=== PATIENT | female | born 1990 ===

== ENCOUNTER 2020-10-20 18:18 | Emergency (ER) | payer OTHER, SELFPAY ==
[2020-10-20 18:44] VITALS: BP 153/86; PULSE 72; RESP 18; TEMP 36.8; O2SAT 99; BMI 31.0
--- NOTE | 2020-10-20 19:56 | CT_ITS ---
EXAMINATION: CT HEAD WITHOUT CONTRAST CLINICAL INFORMATION: Headache. Worse than prior. COMPARISON: CT head 04/30/2012 TECHNIQUE: Contiguous axial imaging was performed from the skull base to vertex without intravenous administration of contrast. Coronal and sagittal reformatted images are performed at CT scanner This CT examination was performed using dose optimization techniques as appropriate, variously including the following: *Automated exposure control *Adjustment of mA and/or kV according to patient size (this includes techniques or standardized protocols for targeted exams where dose is matched to indication/reason for exam; i.e. extremities or head) *Use of iterative reconstruction technique DLP: 694 mGy-cm FINDINGS: There is no evidence of acute intracranial hemorrhage or territorial infarction. No abnormal mass effect or midline shift is seen. Sanchez to white matter differentiation is well preserved. No extra-axial fluid collections are identified. The ventricles are normal in size. There is no abnormal attenuation within the brain parenchyma. The osseous structures and soft tissues are normal. The mastoid air cells and visualized portions of the paranasal sinuses are well aerated. CT/CT head/brain wo con IMPRESSION: No acute intracranial pathology.
[2020-10-20 20:18] LABS: Basophils Absolute Auto 0.1 X10*3/uL (0.0-0.2); Basophils Percent Auto 0.4 % (0-2); Eosinophils Absolute Auto 0.1 X10*3/uL (0.0-0.4); Eosinophils Percent Auto 0.6 % (0-4); Hematocrit 40.9 % (37-47); Hemoglobin 13.3 g/dl (12.0-16.0); Imm Gran Abs Auto 0.07 X10*3/uL (0.00-0.03); Imm Gran Pct Auto 0.5 % (0.0-0.4); Lymphocytes Absolute Auto 1.9 X10*3/uL (1.2-4.9); Lymphocytes Percent Auto 13.9 % (20-40); MANUAL DIFF FLAG NO; Mean Corpuscular HGB Conc 32.5 g/dl (31.0-35.0); Mean Corpuscular Hemoglobin 27.2 pg (27.0-33.0); Mean Corpuscular Volume 83.6 fL (80-98); Mean Platelet Volume 12.2 fL (9.4-12.3); Monocytes Absolute Auto 0.5 X10*3/uL (0.1-1.2); Monocytes Percent Auto 3.8 % (2-11); Neutrophils Absolute Auto 11.2 X10*3/uL (2.0-8.3); Neutrophils Percent Auto 80.8 % (45-73); Platelet Count 215 X10*3/uL (160-400); Red Blood Count 4.89 X10*6/uL (4.20-5.50); Red Cell Distribution Width 14.5 % (11.0-16.0); White Blood Count 13.9 X10*3/uL (4.8-10.8)
[2020-10-20] MEDS: diphenhydrAMINE HCL 50 MG/ML VIAL 25 MG IVPUSH (20:25)
[2020-10-20] MEDS: Metoclopramide HCl 10 MG/2 ML VIAL IVPUSH (20:25)
[2020-10-20] MEDS: dexAMETHasone sod phosphate 4 MG/ML VIAL 10 MG IVPUSH (20:26)
[2020-10-20] MEDS: Ketorolac Tromethamine 15 MG/ML VIAL 30 MG IV (20:26)
[2020-10-20 20:42] LABS: INTERNATIONAL NORM RATIO 1.1 (0.9-1.1); Prothrombin Time 12.7 SEC (10.8-13.0)
--- NOTE | 2020-10-20 20:47 | ED.HA ---
HPI - Headache General Chief Complaint: Headache Stated Complaint: headache Time Seen by Provider: 10/20/20 19:39 Source: patient Mode of arrival: ambulatory Limitations: no limitations History of Present Illness HPI Narrative: A 29-year-old female with a past medical history of migraine headaches presenting to the ED with complaints of a migraine headache for the past 3 days with associated nausea/vomiting which is similar compared to her prior migraine headaches. Although reports that she has tried ggvv-aja-zunvhuf medication which usually helps and has not taken the migraine is way. Denies any other symptoms complaints or concerns at this time. Related Data Previous Rx's Medication Instructions Recorded epafxuc-sznwqqmspbhif-yygujhwd 2 tab PO Q6H PRN #10 tab 10/20/20 [Excedrin Migraine] diphenhydramine HCl [Benadryl 25 mg PO TID PRN #10 tab 10/20/20 Allergy] metoclopramide HCl [Reglan] 10 mg PO Q6H PRN #10 tab 10/20/20 Allergies Allergy/AdvReac Type Severity Reaction Status Date / Time No Known Allergies Allergy Mild UNKNOWN Verified 10/20/20 19:13 Review of Systems Review of Systems: Constitutional : No changes in activity, No lethargy, No recent prior head injury, No agitation, No increased fussiness ENT/Mouth : No Ear Pain, No Nasal discharge/drainage Eyes: No Eye Pain, No Swelling, No Redness, No Foreign Body, No Vision Changes Cardiovascular : No Chest Pain, No SOB Respiratory : No Cough Gastrointestinal : + Nausea, + Vomiting, No abdominal Pain Genitourinary : No Dysuria, No Urinary Frequency, No Urinary Incontinence, No Urgency, No Flank Pain Musculoskeletal : No joint pain, No neck stiffness, No back pain/injury Skin : No lacerations Neuro : No unsteady gait, No Paresthesias, No Loss of Consciousness, No altered mental status, No dizziness, + Headache Denies past medical history of HIV, recent trauma, coagulopathy, recent spinal/ epidural procedure, new medication, URI symptoms, close contacts with similar symptoms, tick bite, or known CO2 exposure. Yes all other systems are reviewed and are negative [facility] Past Medical History Attestation statement: The following information was validated with the patient. Medical History Migraine Social History Social History Advance Directives: No Advance Directives Information Provided: No Physical Exam Vital Signs: Vital Signs: Last Vital Signs Temp 98.3 F 10/20/20 18:44 Pulse 72 10/20/20 18:44 Resp 18 10/20/20 18:44 BP 153/86 H 10/20/20 18:44 Pulse Ox 99 10/20/20 18:44 Body Mass Index 31.0 Vital signs have been reviewed as normal and appeared to be correct. Blood pressure normal. Heart rate normal. Respiration rate normal. Temperature normal. Oxygen saturation normal. Appearance: Alert. Oriented X3. No acute distress. Head: Normal external exam. Normocephalic. Atraumatic. Able to rotate head bilaterally. Eyes: PERRLA. EOMI. No nystagmus noted. Conjunctiva and sclera normal. Eyelids normal. Corneal reflex normal. ENT: EAC normal. TM's Normal. Hearing normal. Pharynx normal. Uvula midline. tongue midline. Moist mucous membranes. No trismus noted. No drooling noted. No muffled voice noted. Neck: Normal inspection. Neck supple. FROM. No adenopathy. Thyroid Normal. No meningeal signs. No neck mass noted. CVS: Normal heart rate and rhythm. Heart sound normal. No murmurs noted. Pulses normal throughout. Respiratory: No respiratory distress. Painless inspiration. Breath sounds normal. No wheezes/rales/rhonchi noted. Chest nontender. No accessory muscle usage noted or decreased air movement noted. Back: Full range of motion noted. Skin: Skin warm and dry. Normal skin color. Normal skin turgor. No rashes/lesions/lacerations noted. Extremities: Extremities exhibit normal range of motion. Extremities nontender. Able to shrug shoulders bilaterally and keep up against resistance. Neuro: Oriented X 3. No motor deficit. No sensory deficit. Reflexes normal. Moving all extremities. No focal motor deficits. Cranial nerves II-XI intact bilaterally. Facial strength normal. Normal cognition. Speech normal. Gait normal. Strength 5/5 throughout. No pronator drift. No tremor noted. No fasciculations noted. Muscle tone normal throughout. No asterixis noted. Mfujhc-oh-cpya test normal. Heel to zheng test normal. Tandem gait normal. Does not sway with eyes open. Romberg test negative. Rapid alternating movement upper extremity normal. Rapid alternating movement lower extremity normal. Hand drop from overhead-Mrs. face. No rigidity noted. NIHSS score 0. Course Course Course Narrative: - Patient afebrile, resting comfortably in no distress. Non-toxic appearing. Patient denies any recent trauma/injury to head. Neurological exam shows no deficits. BP WNL. Denies any changes in vision. Patient ambulates without difficulty. Given the history, and physical - most likely diagnosis: Migraine STEPHEN. Although due to patient reporting that this is longer than her usual headaches will obtain CT scan of brain to evaluate for any acute processes. Will treat pain, and nausea. Will d/c with migraine medicaiton and advised to follow - up with PCP. Patient demonstrated good understanding of signs and symptoms to return to ED for further testing should sx worsen. gradual onset STEPHEN with photo/phonophobia, nausea. Pt states classic of previous migraine HAs. SAH: unlikely given gradual onset and similar to previous episodes Intracranial bleed: unlikely given neg trauma, neg anticoagulation Meningitis: unlikely given pt afebrile, neg stiff neck, no immune compromise. Exam without signs of meningismus Temporal arteritis: Unlikely given Neg jaw claudication, no temporal tenderness or nodularity on exam. Cerebral venous thrombosis: unlikely given no h/o hypercoaguable state, no chronic head/neck infection. MDM - Headache Medical Records Attestation: I reviewed the patient's medical records. Lab Data Attestation: I reviewed the patient's lab results. Result diagrams: 10/20/20 20:10 10/20/20 20:10 Labs: Lab Results 10/20/20 10/20/20 10/20/20 Range/Units 20:10 20:10 20:10 WBC 13.9 H (4.8-10.8) X10*3/uL RBC 4.89 (4.20-5.50) X10*6/uL Hgb 13.3 (12.0-16.0) g/dl Hct 40.9 (37-47) % MCV 83.6 (80-98) fL MCH 27.2 (27.0-33.0) pg MCHC 32.5 (31.0-35.0) g/dl RDW 14.5 (11.0-16.0) % Plt Count 215 (160-400) X10*3/uL MPV 12.2 (9.4-12.3) fL Immature Gran % (Auto) 0.5 H (0.0-0.4) % Neut % (Auto) 80.8 H (45-73) % Lymph % (Auto) 13.9 L (20-40) % Finney % (Auto) 3.8 (2-11) % Eos % (Auto) 0.6 (0-4) % Baso % (Auto) 0.4 (0-2) % Lymph # (Auto) 1.9 (1.2-4.9) X10*3/uL Finney # (Auto) 0.5 (0.1-1.2) X10*3/uL Eos # (Auto) 0.1 (0.0-0.4) X10*3/uL Baso # (Auto) 0.1 (0.0-0.2) X10*3/uL Abs Immat Gran (auto) 0.07 H (0.00-0.03) X10*3/uL Absolute Neuts (auto) 11.2 H (2.0-8.3) X10*3/uL Absolute Nucleated RBC 0.000 (0.0-0.012) X10*3/uL Nucleated RBC % (auto) 0.0 (0.0-0.2) /100WBC ESR 9 (0-20) MM/HR PT 12.7 (10.8-13.0) SEC INR 1.1 (0.9-1.1) Sodium (135-145) mmol/L Potassium (3.3-5.1) mmol/l Chloride (96-108) mmol/L Carbon Dioxide (22-29) mmol/L Anion Gap (12-20) BUN (9-16) mg/dL Creatinine (0.5-1.4) mg/dL Estim Creat Clear Calc Estimated GFR Random Glucose (60-115) mg/dL Calcium (8.4-10.2) mg/dL Magnesium (1.6-2.6) mg/dL Total Bilirubin (0.0-1.0) mg/dL Direct Bilirubin (0.0-0.5) mg/dL AST (5-31) U/L ALT (0-31) U/L Alkaline Phosphatase (39-117) U/L C-Reactive Protein (< or = 0.50) mg/dL Total Protein (6.5-8.0) g/dL Albumin (3.5-5.0) g/dL Beta HCG, Quant mIU/mL 10/20/20 10/20/20 Range/Units 20:10 20:10 WBC (4.8-10.8) X10*3/uL RBC (4.20-5.50) X10*6/uL Hgb (12.0-16.0) g/dl Hct (37-47) % MCV (80-98) fL MCH (27.0-33.0) pg MCHC (31.0-35.0) g/dl RDW (11.0-16.0) % Plt Count (160-400) X10*3/uL MPV (9.4-12.3) fL Immature Gran % (Auto) (0.0-0.4) % Neut % (Auto) (45-73) % Lymph % (Auto) (20-40) % Finney % (Auto) (2-11) % Eos % (Auto) (0-4) % Baso % (Auto) (0-2) % Lymph # (Auto) (1.2-4.9) X10*3/uL Finney # (Auto) (0.1-1.2) X10*3/uL Eos # (Auto) (0.0-0.4) X10*3/uL Baso # (Auto) (0.0-0.2) X10*3/uL Abs Immat Gran (auto) (0.00-0.03) X10*3/uL Absolute Neuts (auto) (2.0-8.3) X10*3/uL Absolute Nucleated RBC (0.0-0.012) X10*3/uL Nucleated RBC % (auto) (0.0-0.2) /100WBC ESR (0-20) MM/HR PT (10.8-13.0) SEC INR (0.9-1.1) Sodium 142 (135-145) mmol/L Potassium 3.9 (3.3-5.1) mmol/l Chloride 106 (96-108) mmol/L Carbon Dioxide 27 (22-29) mmol/L Anion Gap 13 (12-20) BUN 8 L (9-16) mg/dL Creatinine 0.59 (0.5-1.4) mg/dL Estim Creat Clear Calc 160.4 Estimated GFR > 60 Random Glucose 91 (60-115) mg/dL Calcium 9.2 (8.4-10.2) mg/dL Magnesium 1.9 (1.6-2.6) mg/dL Total Bilirubin 0.4 (0.0-1.0) mg/dL Direct Bilirubin < 0.2 (0.0-0.5) mg/dL AST 14 (5-31) U/L ALT 29 (0-31) U/L Alkaline Phosphatase 88 (39-117) U/L C-Reactive Protein 0.62 H (< or = 0.50) mg/dL Total Protein 7.3 (6.5-8.0) g/dL Albumin 4.4 (3.5-5.0) g/dL Beta HCG, Quant < 2 mIU/mL Imaging Data CT scan - head: Attestation: I personally reviewed and interpreted this imaging study as follows: Radiologist's impression: IMPRESSION: No acute intracranial pathology. Discharge Plan Discharge Clinical Impression: Migraine Patient Disposition: Home, Self-Care Instructions: Migraine Headache (ED), Ocular Migraine (ED) Prescriptions: New diphenhydramine HCl [Benadryl Allergy] 25 mg tablet 25 mg PO TID PRN (Reason: nausea and vomiting) Qty: 10 RF: 0 Excedrin Migraine 250-250-65 mg tablet 2 tab PO Q6H PRN (Reason: pain) Qty: 10 RF: 0 metoclopramide HCl [Reglan] 10 mg tablet 10 mg PO Q6H PRN (Reason: nausea and vomiting) Qty: 10 RF: 0 Referrals: Missy Zuniga MD [Primary Care Provider] - 2 days Print Language: Wolof
[2020-10-20 20:48] LABS: Alanine Aminotransferase 29 U/L (0-31); Albumin Level 4.4 g/dL (3.5-5.0); Alkaline Phosphatase 88 U/L (39-117); Anion Gap 13 (12-20); Aspartate Amino Transferase 14 U/L (5-31); Bilirubin Direct < 0.2 mg/dL (0.0-0.5); Bilirubin Total 0.4 mg/dL (0.0-1.0); Blood Urea Nitrogen 8 mg/dL (9-16); C Reactive Protein 0.62 mg/dL (< or = 0.50); Calcium 9.2 mg/dL (8.4-10.2); Carbon Dioxide 27 mmol/L (22-29); Chloride 106 mmol/L (96-108); Creatinine Clr Calc Pharmacy 160.4; Estimated Glomerular Filt Rate > 60; Glucose Random 91 mg/dL (60-115); Magnesium 1.9 mg/dL (1.6-2.6); Potassium 3.9 mmol/l (3.3-5.1); Sodium 142 mmol/L (135-145); Total Protein 7.3 g/dL (6.5-8.0)
[2020-10-20 20:55] LABS: HCG Quantitative < 2 mIU/mL
[2020-10-20 21:20] LABS: Erythrocyte Sedimentation Rate 9 MM/HR (0-20)
--- NOTE | 2020-10-20 21:51 | PC.NURSE ---
pt reporting significant improvement with headache. sleeping upon entry into room. requesting discharge. awaiting ct results.
== END 2020-10-20 22:22 | disposition home or self-care (01) ==
PROVIDERS: Physician Assistant Medical; Emergency Provider Emergency Medicine Emergency Medical Services; PCP Internal Medicine
DX: G43.909 Migraine, unspecified, not intractable, without status migrainosus (principal); Z79.899 Other long term (current) drug therapy
CPT/HCPCS: 36415; 70450; 80048; 80076; 83735; 84702; 85025; 85610; 85652; 86140; 96361; 96374; 96375; 99284; J1100; J1200; J1885; J2765

== ENCOUNTER 2020-11-29 13:27 | Outpatient (REF) | payer OTHER, SELFPAY | END 2020-11-29 13:28 | disposition home or self-care (01) | LOC: HO.LAB 13:27 | PROVIDERS: Visit Provider Internal Medicine | DX: Z20.822 Contact with and (suspected) exposure to COVID-19 (principal) | CPT/HCPCS: 36415; C9803; U0003 ==

== ENCOUNTER 2021-04-20 13:58 | Emergency (ER) | payer OTHER, SELFPAY ==
[2021-04-20 14:25] VITALS: BP 142/89; PULSE 77; RESP 16; TEMP 36.9; O2SAT 100; BMI 30.8
--- NOTE | 2021-04-20 14:31 | ECG_ITS ---
Test Reason : CHEST PAIN Blood Pressure : / mmHG Vent. Rate : 074 BPM Atrial Rate : 074 BPM P-R Int : 156 ms QRS Dur : 088 ms QT Int : 402 ms P-R-T Axes : 062 039 038 degrees QTc Int : 446 ms Normal sinus rhythm Nonspecific T wave abnormality Abnormal ECG When compared with ECG of 23-JAN-2014 11:17, Premature ventricular complexes are no longer Present Referred By: Generic ED Physician Electronically Signed By:Kevin Helm
[2021-04-20 14:57] LABS: MANUAL DIFF FLAG NO
[2021-04-20 15:02] LABS: Basophils Absolute Auto 0.1 X10*3/uL (0.0-0.2); Basophils Percent Auto 0.5 % (0-2); Eosinophils Absolute Auto 0.2 X10*3/uL (0.0-0.4); Eosinophils Percent Auto 1.6 % (0-4); Hemoglobin 13.3 g/dl (12.0-16.0); Imm Gran Pct Auto 0.9 % (0.0-0.4); Lymphocytes Absolute Auto 2.8 X10*3/uL (1.2-4.9); Lymphocytes Percent Auto 23.7 % (20-40); Mean Corpuscular HGB Conc 32.4 g/dl (31.0-35.0); Mean Corpuscular Hemoglobin 27.9 pg (27.0-33.0); Mean Corpuscular Volume 86.1 fL (80-98); Mean Platelet Volume 12.1 fL (9.4-12.3); Monocytes Absolute Auto 0.6 X10*3/uL (0.1-1.2); Monocytes Percent Auto 5.3 % (2-11); Neutrophils Absolute Auto 7.9 X10*3/uL (2.0-8.3); Platelet Count 201 X10*3/uL (160-400); Red Blood Count 4.76 X10*6/uL (4.20-5.50); Red Cell Distribution Width 14.1 % (11.0-16.0); White Blood Count 11.6 X10*3/uL (4.8-10.8)
[2021-04-20 15:38] LABS: Anion Gap 13 (12-20); Blood Urea Nitrogen 9 mg/dL (9-16); Calcium 9.8 mg/dL (8.4-10.2); Carbon Dioxide 27 mmol/L (22-29); Chloride 104 mmol/L (96-108); Creatinine Clr Calc Pharmacy 131.8; Estimated Glomerular Filt Rate > 60; Glucose Random 82 mg/dL (60-115); Potassium 4.1 mmol/L (3.3-5.1); Sodium 140 mmol/L (135-145)
[2021-04-20 15:41] LABS: Troponin-I High Sensitivity < 3.5 ng/L (<3.5-17.0)
--- NOTE | 2021-04-20 17:02 | PC.NURSE ---
CALLED WR PT X 3 NO RESPONSE.
== END 2021-04-20 18:00 | disposition left against medical advice (07) ==
PROVIDERS: Emergency Provider Emergency Medicine
DX: R07.9 Chest pain, unspecified (principal)
CPT/HCPCS: 36415; 80048; 84484; 85025; 93005; 99282; 99283

== ENCOUNTER 2023-08-03 07:26 | Emergency (ER) | payer OTHER, SELFPAY ==
--- NOTE | ~2023-08-03 | US_ITS ---
EXAMINATION: US VENOUS ULTRASOUND WITH DOPPLER LOWER EXTREMITY, LEFT CLINICAL INFORMATION: COMPARISON: None available. TECHNIQUE: Ultrasound of the deep veins is performed from the hip to the calf with compression sonography and color and pulse Doppler assessment. Spectral analysis with color-flow imaging is performed. FINDINGS: There is normal venous compression and respiratory variation and augmented flow. The visualized common femoral vein, superficial femoral vein, profunda femoral vein, popliteal vein, and the trifurcation region shows no evidence of deep venous thrombosis. There is no significant popliteal fossa cyst. If the patient's symptoms persist, followup ultrasound in 5 days 7 days might be of value to exclude proximal propagation from a non-visualized calf vein. US/US venous duplex LE LT IMPRESSION: No DVT demonstrated in the left lower extremity.
[2023-08-03 07:39] VITALS: BP 122/71; PULSE 91; RESP 17; TEMP 36.6; O2SAT 99; BMI 32.1
[2023-08-03 08:46] LABS: MANUAL DIFF FLAG NO
[2023-08-03 08:47] LABS: Basophils Percent Auto 0.3 % (0-2); Eosinophils Percent Auto 0.1 % (0-4); Hematocrit 39.1 % (37.0-47.0); Hemoglobin 12.8 g/dl (12.0-16.0); Imm Gran Abs Auto 0.11 X10*3/uL (0.00-0.03); Imm Gran Pct Auto 1.2 % (0.0-0.4); Lymphocytes Absolute Auto 1.1 X10*3/uL (1.2-4.9); Lymphocytes Percent Auto 11.7 % (20-40); Mean Corpuscular HGB Conc 32.7 g/dl (31.0-35.0); Mean Corpuscular Hemoglobin 27.2 pg (27.0-33.0); Mean Corpuscular Volume 83.2 fL (80.0-98.0); Mean Platelet Volume 11.6 fL (9.4-12.3); Monocytes Absolute Auto 0.6 X10*3/uL (0.1-1.2); Monocytes Percent Auto 6.3 % (2-11); Neutrophils Absolute Auto 7.6 x10*3/uL (2.0-8.3); Neutrophils Percent Auto 80.4 % (45-73); Platelet Count 157 X10*3/uL (160-400); Red Cell Distribution Width 14.4 % (11.0-16.0); White Blood Count 9.4 X10*3/uL (4.8-10.8)
[2023-08-03 08:53] LABS: INTERNATIONAL NORM RATIO 1.1 (0.9-1.1); Prothrombin Time 13.6 SEC (11.1-13.3)
[2023-08-03 08:55] LABS: Partial Thromboplastin Time 25.5 SEC (26.0-36.4)
[2023-08-03 09:02] LABS: Alanine Aminotransferase 27 U/L (0-31); Albumin Level 4.3 g/dL (3.5-5.0); Alkaline Phosphatase 76 U/L (39-117); Anion Gap 12 (12-20); Aspartate Amino Transferase 22 U/L (5-31); Bilirubin Total 0.5 mg/dL (0.0-1.0); Blood Urea Nitrogen 8 mg/dL (9-16); Calcium 9.5 mg/dL (8.4-10.2); Carbon Dioxide 25 mmol/L (22-29); Chloride 104 mmol/L (96-108); Creatinine Clr Calc Pharmacy 131.9; Estimated Glomerular Filt Rate > 60; Glucose Random 104 mg/dL (60-115); Potassium 3.8 mmol/L (3.3-5.1); Sodium 137 mmol/L (135-145); Total Protein 7.7 g/dL (6.5-8.0)
--- NOTE | 2023-08-03 09:06 | ED.EXTPRO ---
HPI - Extremity Problem General Chief complaint: Extremity Problem Stated complaint: L leg pain/rash Time Seen by Provider: 08/03/23 09:05 Source: patient, RN notes reviewed and old records reviewed Mode of arrival: ambulatory History of Present Illness HPI Narrative: 32-year-old female with a past medical history of migraines presenting to the ED complaining of LLE pain x3 days, followed by erythematous rash noted last night. Patient states she marked the area before bed and extended up leg this morning. Also reports chills, myalgias, nausea and vomiting yesterday. Admits pain radiating up leg with associated foot paresthesias. denies injury/ fall or trauma, new exposures, known tick or insect bites, recent travel, fever, rash the other area MD Complaint: extremity pain and extremity swelling Related Data Previous Rx's Medication Instructions Recorded wammnfz-yovvdklkzeqts-qacwhbfd 250 2 tab PO Q6H PRN pain #10 tabs 10/20/20 mg-250 mg-65 mg tablet (Excedrin Migraine) diphenhydramine HCl 25 mg tablet 25 mg PO TID PRN nausea and 10/20/20 (Benadryl Allergy) vomiting #10 tabs metoclopramide HCl 10 mg tablet 10 mg PO Q6H PRN nausea and 10/20/20 (Reglan) vomiting #10 tabs cephalexin 500 mg capsule 500 mg PO QID 7 days #28 caps 08/03/23 doxycycline hyclate 100 mg tablet 100 mg PO BID 7 days #14 tabs 08/03/23 Allergies Allergy/AdvReac Type Severity Reaction Status Date / Time No Known Allergies Allergy Mild UNKNOWN Verified 04/20/21 14:30 Review of Systems Review of Systems: Constitutional: No Fever, + Chills ENT/Mouth: No Ear Pain, No Nasal Congestion, No Hoarseness, No sore throat, No Rhinorrhea, No Swallowing Difficulty Cardiovascular: No Chest Pain, No SOB Respiratory: No Cough, No Sputum, No Wheezing Gastrointestinal: + Nausea, + Vomiting, No Diarrhea, No Constipation, No Abdominal pain Musculoskeletal: + joint pain, No Myalgias, + Joint Swelling Skin: No Skin Lesions, + rash Neuro: No Weakness, No Numbness, No Paresthesias Yes all other systems are reviewed and are negative Constitutional: Constitutional: Reports as per [facility] Past Medical History Attestation statement: The following information was validated with the patient. Source: old records reviewed Medical History Migraine Social History Social History Alcohol intake: never Smoked in Last 30 Days: No Use of substances other than those prescribed or required for medical reasons: No Advance Directives: No Advance Directives Information Provided: No Patient : No Physical Exam Vital Signs: Vital Signs: Last Vital Signs Temp 98.9 F 08/03/23 10:42 Pulse 88 08/03/23 10:42 Resp 16 08/03/23 10:42 BP 133/80 08/03/23 10:42 Pulse Ox 98 08/03/23 10:42 O2 Del Method Room Air 08/03/23 10:42 BMI result Body Mass Index 32.1 Const: General: cooperative, healthy appearing and no acute distress Orientation/consciousness: patient oriented x3 Limitations: no limitations HEENT: Head: Yes normal to inspection and Yes atraumatic Ears: hearing grossly normal bilaterally General nose exam: Normal external nose present Face and sinus: Yes normal facial exam Eyes: General: appearance normal, both eyes and all related structures EOM: EOMs intact bilaterally Neck: Neck: Yes normal visual inspection and Yes no meningeal signs Resp: Effort & Inspection: normal respiratory effort and no respiratory distress Cardio: Rate: regular rate Peripheral pulses: Peripheral pulses 2+ throughout : General: Yes no CVA tenderness Back/Spine/Pelvis: Back: no CVA tenderness Skin: Wounds: no wounds Neuro: General: patient oriented x3, tone normal and no meningeal signs Cranial nerves: Yes CN's II-XII intact bilaterally Gait exam (Neuro): Normal gait present Extrem: Other: +LLE with erythematous raised rash starting at ankle extending to proximal calf. Not circumferential. Tender. Warm to touch. Blanchable. No fluctuance/ induration or streaking. No lymphangitis. Compartments soft. Neurovascular tight distally. ?small bite wound noted to distal calf General: Yes capillary refill normal Course Course Course Narrative: -1107-- labs reassuring US venous duplex LE LT IMPRESSION: No DVT demonstrated in the left lower extremity. Results discussed with patient including worrisome signs and symptoms and strict return precautions, and when to return to the emergency department. They verbalized understanding and feel safe for discharge at this time. Medications Administered Discontinued Medications Generic Name Dose Route Start Last Admin Trade Name Ritu PRN Reason Stop Dose Admin Cephalexin HCl 500 mg 08/03/23 09:11 08/03/23 09:49 Cephalexin 500 Mg Capsule PO 08/03/23 09:12 500 mg ONCE ONE Administration Diphenhydramine HCl 25 mg 08/03/23 09:11 08/03/23 09:49 Diphenhydramine Hcl 25 Mg Capsule PO 08/03/23 09:12 25 mg ONCE ONE Administration Ketorolac Tromethamine 30 mg 08/03/23 09:11 08/03/23 09:49 Ketorolac Tromethamine 30 Mg/Ml Vial IM 08/03/23 09:12 30 mg ONCE ONE Administration Medical Decision Making Medical Decision Making [facility] Narrative: 32-year-old female with a past medical history of migraines presenting to the ED complaining of LLE pain x3 days, followed by erythematous rash noted last night. On exam vital signs stable, NAD, nontoxic appearing her physical exam as noted above with raised erythematous rash to left lower extremity extending from ankle to proximal calf with tenderness. Compartments soft. No crepitus. Warm. No pitting edema. Neurovascular intact. Concern for cellulitis secondary to ?insect bite vs ?localized allergic reaction. low suspicion DVT, necrotizing fasciitis or coagulopathy plan: Labs ordered in triage, venous duplex ultrasound, p.o. Benadryl, p.o. Keflex, IM Toradol Please refer to course for remaining clinical decision making, interpretation of labs/imaging results, and discussions with consultants and/or family members. Differential Diagnosis Differential Diagnoses: The differential diagnosis associated with the presentation includes As above Admission/Observation Consideration of admission/observation: Escalation of care including admission/observation considered Lab Data [facility] Lab Attestation statement: I reviewed the patient's lab results. 08/03/23 08:41 08/03/23 08:41 Labs: Lab Results 08/03/23 Range/Units 08:41 WBC 9.4 (4.8-10.8) X10*3/uL RBC 4.70 (4.20-5.50) X10*6/uL Hgb 12.8 (12.0-16.0) g/dl Hct 39.1 (37.0-47.0) % MCV 83.2 (80.0-98.0) fL MCH 27.2 (27.0-33.0) pg MCHC 32.7 (31.0-35.0) g/dl RDW 14.4 (11.0-16.0) % Plt Count 157 L (160-400) X10*3/uL MPV 11.6 (9.4-12.3) fL Immature Gran % (Auto) 1.2 H (0.0-0.4) % Neut % (Auto) 80.4 H (45-73) % Lymph % (Auto) 11.7 L (20-40) % Crane % (Auto) 6.3 (2-11) % Eos % (Auto) 0.1 (0-4) % Baso % (Auto) 0.3 (0-2) % Lymph # (Auto) 1.1 L (1.2-4.9) X10*3/uL Crane # (Auto) 0.6 (0.1-1.2) X10*3/uL Eos # (Auto) 0.0 (0.0-0.4) X10*3/uL Baso # (Auto) 0.0 (0.0-0.2) X10*3/uL Abs Immat Gran (auto) 0.11 H (0.00-0.03) X10*3/uL Absolute Neuts (auto) 7.6 (2.0-8.3) x10*3/uL Absolute Nucleated RBC 0.000 (0.0-0.012) X10*3/uL Nucleated RBC % (auto) 0.0 (0.0-0.2) /100WBC PT 13.6 H (11.1-13.3) SEC INR 1.1 (0.9-1.1) APTT 25.5 L (26.0-36.4) SEC Sodium 137 (135-145) mmol/L Potassium 3.8 (3.3-5.1) mmol/L Chloride 104 (96-108) mmol/L Carbon Dioxide 25 (22-29) mmol/L Anion Gap 12 (12-20) BUN 8 L (9-16) mg/dL Creatinine 0.71 (0.5-1.4) mg/dL Estim Creat Clear Calc 131.9 Estimated GFR > 60 Random Glucose 104 (60-115) mg/dL Calcium 9.5 (8.4-10.2) mg/dL Total Bilirubin 0.5 (0.0-1.0) mg/dL AST 22 (5-31) U/L ALT 27 (0-31) U/L Alkaline Phosphatase 76 (39-117) U/L Total Protein 7.7 (6.5-8.0) g/dL Albumin 4.3 (3.5-5.0) g/dL Radiology Impression Discussion of test interpretation with radiology: I have reviewed the radiologist's reading. External Record Review External record reviewed: Inpatient record, Office record, Outpatient record, Prior outpatient labs, Prior outpatient radiology, Primary care record and Outside ED record Tests considered The following testing was considered but not selected: As above Prescription Management I considered prescription management with: Pain Medication Discharge Plan Discharge Clinical Impression: Cellulitis Patient Disposition: Home, Self-Care Instructions: Cellulitis (DC) Additional Instructions: your blood work and ultrasound were reassuring Take Keflex and doxycycline as prescribed If redness or swelling is passing lines created in the emergency department please return to the ED Please follow-up in 2-3 days for re-evaluation if you develops fever, persistent or worsening swelling/discoloration return to the ED Prescriptions: New cephalexin 500 mg capsule 500 mg PO QID 7 Days Qty: 28 0RF doxycycline hyclate 100 mg tablet 100 mg PO BID 7 Days Qty: 14 0RF No Action diphenhydramine HCl [Benadryl Allergy] 25 mg tablet 25 mg PO TID PRN (Reason: nausea and vomiting) Qty: 10 0RF Excedrin Migraine 250-250-65 mg tablet 2 tab PO Q6H PRN (Reason: pain) Qty: 10 0RF metoclopramide HCl [Reglan] 10 mg tablet 10 mg PO Q6H PRN (Reason: nausea and vomiting) Qty: 10 0RF Referrals: Liliana Flores DO [Primary Care Provider] - 2 days ( for re-evaluation) Interventions: ED Discharge Assessment Last Done: 08/03/23 11:25 Discharge Date/Time: 08/03/23 11:25
[2023-08-03] MEDS: diphenhydrAMINE HCL 25 MG CAPSULE PO (09:49)
[2023-08-03] MEDS: Ketorolac Tromethamine 30 MG/ML VIAL IM (09:49)
[2023-08-03] MEDS: cephALEXin 500 MG CAPSULE PO (09:49)
[2023-08-03 10:42] VITALS: BP 133/80; PULSE 88; RESP 16; TEMP 37.2; O2SAT 98
== END 2023-08-03 11:25 | disposition home or self-care (01) ==
PROVIDERS: Emergency Provider Emergency Medicine Emergency Medical Services; PCP Family Medicine
DX: L03.116 Cellulitis of left lower limb (principal); M79.662 Pain in left lower leg; Z79.82 Long term (current) use of aspirin; Z79.899 Other long term (current) drug therapy
CPT/HCPCS: 36415; 80053; 85025; 85610; 85730; 93971; 96372; 99284; J1885

== ENCOUNTER 2023-08-24 16:46 | Emergency (ER) | payer OTHER, SELFPAY ==
--- NOTE | 2023-08-24 17:07 | ED.SKABFB ---
HPI - Skin/Abscess/Foreign Bdy General Chief complaint: General Medical Stated complaint: numbness in hand, chills, L leg rash Time Seen by Provider: 08/24/23 17:47 Source: patient Mode of arrival: ambulatory History of Present Illness HPI narrative: 32-year-old female who presents with recurrence of left lower extremity redness, pain, and swelling that came on starting at 05:00 this morning. She states she was seen 3 weeks ago for a similar presentation and did follow-up with her primary care doctor today who obtained lab work but the pain was extensive and patient states she began to feel unwell with associated nausea and headache. Related Data Previous Rx's Medication Instructions Recorded [id number] 250 2 tab PO Q6H PRN pain #10 tabs 10/20/20 mg-250 mg-65 mg tablet (Excedrin Migraine) diphenhydramine HCl 25 mg tablet 25 mg PO TID PRN nausea and 10/20/20 (Benadryl Allergy) vomiting #10 tabs metoclopramide HCl 10 mg tablet 10 mg PO Q6H PRN nausea and 10/20/20 (Reglan) vomiting #10 tabs cephalexin 500 mg capsule 500 mg PO QID 7 days #28 caps 08/03/23 doxycycline hyclate 100 mg tablet 100 mg PO BID 7 days #14 tabs 08/03/23 prednisone 20 mg tablet 20 mg PO DAILY #4 tabs 08/24/23 Allergies Allergy/AdvReac Type Severity Reaction Status Date / Time No Known Allergies Allergy Mild UNKNOWN Verified 04/20/21 14:30 Review of Systems Review of Systems: Pertinent positives and negatives as stated in HPI [facility] Past Medical History Source: nursing notes reviewed Medical History Migraine Social History Social History Alcohol intake: never Smoked in Last 30 Days: No Use of substances other than those prescribed or required for medical reasons: No Advance Directives: No Physical Exam Vital Signs: Vital Signs: Last Vital Signs Temp 98.7 F 08/24/23 19:02 Pulse 108 H 08/24/23 19:02 Resp 16 08/24/23 17:08 BP 144/100 H 08/24/23 19:02 Pulse Ox 98 08/24/23 19:02 O2 Del Method Room Air 08/24/23 19:02 BMI result Body Mass Index 42.3 VITAL SIGNS: Reviewed. GENERAL: Well developed, well nourished, in no acute distress. HEAD: Normocephalic/atraumatic EYES: PERRLA, EOMI EARS: Ext canals without abnormality NOSE: Nares patent bilateral OROPHARYNX: no oral lesions noted, posterior pharynx clear NECK: Supple, no adenopathy LUNGS: Normal breath sounds. No adventitious sounds or accessory muscle use. SpO2<98> CARDIOVASCULAR: Regular rate and rhythm without noted murmurs ABDOMEN: Soft, non-tender, non-distended with bowel sounds. MUSCULOSKELETAL: No tenderness, deformities, or effusions noted on gross inspection. EXTREMITIES: No cyanosis, clubbing or edema. SKIN: Inspection of the skin reveals no rashes NEUROLOGIC: Alert and oriented x 4. Strength and sensation to light touch were grossly intact x 4. Course Course Course Narrative: This is an RME: Additional HPI, ROS, PE not included below will be deferred to primary provider. Patient is a 32-year-old female who presents emergency department for evaluation of nausea, chills, body aches, today developed return of LLE rash, saw her PCP today at 14:00 they prescribed prednisone and had labs drawn. However once she left the office she was feeling worse so she decided to come to the ED. Reports a hx of similar symptoms 3 weeks ago, and was told likely cellulitis vs. allergic reaction, symptoms lasted 1 week and completed course of antibiotics. She is noted to be hypertensive, tachycardic with pulse 110-120, reports intermittent chest pain and difficulty breathing, denies feeling anxious or having history of anxiety. Plan: labs, blood cultures, EKG Medications Administered Discontinued Medications Generic Name Dose Route Start Last Admin Trade Name Freq PRN Reason Stop Dose Admin Acetaminophen 975 mg 08/24/23 20:10 08/24/23 20:16 Acetaminophen 325 Mg Tablet PO 08/24/23 20:11 975 mg ONCE ONE Administration Ibuprofen 400 mg 08/24/23 20:10 08/24/23 20:16 Ibuprofen 400 Mg Tablet PO 08/24/23 20:11 400 mg ONCE ONE Administration Medical Decision Making Medical Decision Making MDM Narrative: 193: 32-year-old female with history and clinical presentation, DDX: Anxiety, skin reaction, less likely cellulitis, less likely DVT but will proceed with venous duplex, autoimmune or vasculitis condition. I reviewed all investigations and hematologic indices demonstrate a stress leukocytosis as patient is afebrile and suspect a component anxiety associated with the episode. There is no anemia or thrombocytopenia. Ultrasound negative for DVT. Chemistry indices are grossly within normal limits as there is no SP, electrolyte and liver enzymes are within normal limits, high sensitivity troponin is undetectable (this was obtained because patient had endorsed some chest discomfort). ESR is within normal limits but CRP is noted to be elevated at 2.27. Rheumatoid factor is undetectable at 13, patient received combination analgesics with good pain control, Joesph wrap was placed for compression and relief of pressure within the leg and she will be discharged on a short course of steroids as I feel that this is an inflammatory response and not an infectious etiology due to the recurrence. COVID-19 is negative. Patient was informed of all results and findings. Differential Diagnosis Differential Diagnoses: The differential diagnosis associated with the presentation includes Please see the discussion above Admission/Observation Consideration of admission/observation: Escalation of care including admission/observation considered Please see the discussion above Lab Data MDM Lab Attestation statement: I reviewed the patient's lab results. Please see the discussion above 08/24/23 18:04 08/24/23 18:04 Labs: Lab Results 08/24/23 08/24/23 08/24/23 Range/Units 18:04 19:08 20:09 WBC 13.3 H (4.8-10.8) X10*3/uL RBC 4.75 (4.20-5.50) X10*6/uL Hgb 12.9 (12.0-16.0) g/dl Hct 39.3 (37.0-47.0) % MCV 82.7 (80.0-98.0) fL MCH 27.2 (27.0-33.0) pg MCHC 32.8 (31.0-35.0) g/dl RDW 14.2 (11.0-16.0) % Plt Count 189 (160-400) X10*3/uL MPV 11.9 (9.4-12.3) fL Immature Gran % (Auto) 0.5 H (0.0-0.4) % Neut % (Auto) 84.8 H (45-73) % Lymph % (Auto) 8.7 L (20-40) % [place] % (Auto) 4.7 (2-11) % Eos % (Auto) 0.8 (0-4) % Baso % (Auto) 0.5 (0-2) % Lymph # (Auto) 1.2 (1.2-4.9) X10*3/uL [place] # (Auto) 0.6 (0.1-1.2) X10*3/uL Eos # (Auto) 0.1 (0.0-0.4) X10*3/uL Baso # (Auto) 0.1 (0.0-0.2) X10*3/uL Abs Immat Gran (auto) 0.06 H (0.00-0.03) X10*3/uL Absolute Neuts (auto) 11.3 H (2.0-8.3) x10*3/uL Absolute Nucleated RBC 0.000 (0.0-0.012) X10*3/uL Nucleated RBC % (auto) 0.0 (0.0-0.2) /100WBC ESR 18 (0-20) MM/HR PT 12.3 (11.1-13.3) SEC INR 1.0 (0.9-1.1) Sodium 139 (135-145) mmol/L Potassium 3.5 (3.3-5.1) mmol/L Chloride 104 (96-108) mmol/L Carbon Dioxide 23 (22-29) mmol/L Anion Gap 16 (12-20) BUN 5 L (9-16) mg/dL Creatinine 0.62 (0.5-1.4) mg/dL Estim Creat Clear Calc 175.1 Estimated GFR > 60 Random Glucose 104 (60-115) mg/dL Lactic Acid 1.3 (0.5-2.0) mmol/L Calcium 9.6 (8.4-10.2) mg/dL Magnesium 1.7 (1.6-2.6) mg/dL Total Bilirubin 0.7 (0.0-1.0) mg/dL AST 14 (5-31) U/L ALT 18 (0-31) U/L Alkaline Phosphatase 76 (39-117) U/L Troponin I High Sens < 2.7 (<3.5-17.0) ng/L C-Reactive Protein 2.27 H (< or = 0.50) mg/dL Total Protein 7.8 (6.5-8.0) g/dL Albumin 4.5 (3.5-5.0) g/dL Hold Red Top See Note Urine Color Yellow Urine Appearance Clear Urine pH 7.5 (5.0-9.0) Ur Specific [place] 1.020 (1.005-1.025) Urine Protein Negative (Neg-Trace) mg/dL Urine Glucose (UA) Negative (Negative) mg/dL Urine Ketones Negative (Negative) mg/dL Urine Blood Negative (Negative) Urine Nitrite Negative (Negative) Ur Leukocyte Esterase Moderate (2+) H (Negative) Urine RBC 0-2 (0-2) /HPF Urine WBC 21-50 H (0-5) /HPF Ur Squamous Epith Cells 3-5 (0-2) /HPF Urine Bacteria None Seen (None Seen) Hyaline Casts 0-2 (0-2) /LPF Rheumatoid Factor < 13.0 (<15.0) IU/mL COVID-19 ([facility]) Negative (Negative) COVID-19 Clin Com See Note Independent Interpretation I performed an independent interpretation of an: EKG Interpretation: Sinus tachycardia, HR-112, no STEMI, ND/QRS/QTC is within normal limits. Radiology Impression Discussion of test interpretation with radiology: I have reviewed the radiologist's reading. 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 Please complete the short course of steroids that you have been provided. 2. Please follow-up with your primary care provider on Sunday morning. Return to the ER for any worsening symptoms. Prescriptions: New prednisone 20 mg tablet 20 mg PO DAILY Qty: 4 0RF No Action diphenhydramine HCl [Benadryl Allergy] 25 mg tablet 25 mg PO TID PRN (Reason: nausea and vomiting) Qty: 10 0RF Excedrin Migraine 250-250-65 mg tablet 2 tab PO Q6H PRN (Reason: pain) Qty: 10 0RF metoclopramide HCl [Reglan] 10 mg tablet 10 mg PO Q6H PRN (Reason: nausea and vomiting) Qty: 10 0RF cephalexin 500 mg capsule 500 mg PO QID 7 Days Qty: 28 0RF doxycycline hyclate 100 mg tablet 100 mg PO BID 7 Days Qty: 14 0RF
[2023-08-24 17:08] VITALS: BP 164/104; PULSE 118; RESP 16; TEMP 37.3; O2SAT 100; BMI 42.3
[2023-08-24 19:02] VITALS: BP 144/100; PULSE 108; TEMP 37.1; O2SAT 98
--- NOTE | 2023-08-24 20:55 | PC.NURSE ---
this rn assumed care. pt a&ox3. respirations even and unlabored. pt reports lower left leg pain for one day. pt reports being treated for cellulitis 2 weeks ago on the same leg. pt leg red, warm and tender to touch. redness begins at the lower calf and extends up the upper calf. pt reports pain when standing on the left leg. pt denies chest pain. nausea, vomiting and diarrhea. pt denies fever at this time.
--- NOTE | 2023-08-24 21:40 | PC.NURSE ---
provider at bedside discussing d/c instructions
[2023-08-24 21:46] VITALS: BP 144/87; PULSE 104; RESP 12
== END 2023-08-24 21:50 | disposition home or self-care (01) ==
PROVIDERS: Emergency Provider Student in an Organized Health Care Education/Training Program
DX: R21 Rash and other nonspecific skin eruption (principal); D89.89 Other specified disorders involving the immune mechanism, not elsewhere classified; M79.662 Pain in left lower leg; R00.0 Tachycardia, unspecified; Z11.52 Encounter for screening for COVID-19; Z79.82 Long term (current) use of aspirin; Z79.899 Other long term (current) drug therapy
CPT/HCPCS: 80053; 81001; 83605; 83735; 84484; 85025; 85610; 85652; 86140; 86431; 87040; 87086; 87635; 93005; 93971; 99284

== ENCOUNTER 2023-09-10 09:03 | Emergency (ER) | payer OTHER, SELFPAY ==
[2023-09-10 09:25] VITALS: BP 163/100; PULSE 84; RESP 16; TEMP 36.2; O2SAT 99; BMI 32.4
--- NOTE | 2023-09-10 10:20 | ED_ITS ---
HPI - Extremity Problem General Chief complaint: Extremity Problem Stated complaint: l leg redness painful Time Seen by Provider: 09/10/23 10:17 Source: patient and old records reviewed Mode of arrival: ambulatory Limitations: no limitations History of Present Illness HPI Narrative: 32 yo female presents to the ER for evaluation of recurrent redness, pain and swelling of her left lower leg for the last 3 days. She states this is the 3rd episode of similar symptoms. In July and earlier this month she also had similar symptoms and was seen here. She has had negative DVT studies x2, was treated with antibiotics as well as steroids. She reports no improvement with steroids but brief resolution with antibiotics. She denies fever or chills but reports feeling unwell when the swelling and redness comes. She is nauseated and doesn't feel good. She denies any injury to the leg. No known insect or tick bites. MD Complaint: extremity pain and extremity swelling Onset (ago): day(s) Pain Consistency: constant Location: left and lower extremity Severity scale (1-10): 6 Quality: aching Radiation: proximal and distal Relieving factors: elevation Exacerbating factors: weight bearing, walking and palpation Associated symptoms: myalgias and other (nausea) Related Data Previous Rx's Medication Instructions Recorded [id number] 250 2 tab PO Q6H PRN pain #10 tabs 10/20/20 mg-250 mg-65 mg tablet (Excedrin Migraine) diphenhydramine HCl 25 mg tablet 25 mg PO TID PRN nausea and 10/20/20 (Benadryl Allergy) vomiting #10 tabs metoclopramide HCl 10 mg tablet 10 mg PO Q6H PRN nausea and 10/20/20 (Reglan) vomiting #10 tabs cephalexin 500 mg capsule 500 mg PO QID 7 days #28 caps 08/03/23 doxycycline hyclate 100 mg tablet 100 mg PO BID 7 days #14 tabs 08/03/23 prednisone 20 mg tablet 20 mg PO DAILY #4 tabs 08/24/23 cephalexin 500 mg capsule 500 mg PO Q6H 14 days #56 caps 09/10/23 doxycycline hyclate 100 mg tablet 100 mg PO BID #28 tabs 09/10/23 ibuprofen 600 mg tablet 600 mg PO Q8H PRN pain #14 tabs 09/10/23 ondansetron 4 mg disintegrating 4 mg PO Q8H PRN nausea and 09/10/23 tablet vomiting #7 tabs Allergies Allergy/AdvReac Type Severity Reaction Status Date / Time No Known Allergies Allergy Mild UNKNOWN Verified 04/20/21 14:30 Review of Systems 2 Review of Systems: Yes all other systems are reviewed and are negative [facility] Past Medical History Medical History Migraine Social History Social History Alcohol intake: never Advance Directives: No Physical Exam 2 Vital Signs: Vital Signs: Last Vital Signs Temp 98.4 F 09/10/23 12:55 Pulse 73 09/10/23 12:55 Resp 20 09/10/23 12:55 BP 131/79 09/10/23 12:55 Pulse Ox 99 09/10/23 09:25 O2 Del Method Room Air 09/10/23 09:25 BMI result Body Mass Index 32.4 Appearance: Alert. Oriented X3. No acute distress. HEENT: normal inspection CVS: Normal heart rate and rhythm. Pulses normal. Respiratory: No respiratory distress. Skin: Skin warm and dry. Normal skin color. Normal skin turgor. No rashes. Extremities: Normal inspection of the RLE. LLE with 2+ pitting edema of the lower leg with erythema, tenderness, hyperpigmented rash to the calf and red streaking on the proximal calf, see photo Neuro: Oriented X 3. No motor deficit. No sensory deficit. Medications Administered Discontinued Medications Generic Name Dose Route Start Last Admin Trade Name Freq PRN Reason Stop Dose Admin Cephalexin HCl 500 mg 09/10/23 10:41 09/10/23 11:09 Cephalexin 500 Mg Capsule PO 09/10/23 10:42 500 mg ONCE ONE Administration Doxycycline Monohydrate 100 mg 09/10/23 10:41 09/10/23 11:09 Doxycycline Monohydrate 100 Mg Capsule PO 09/10/23 10:42 100 mg ONCE ONE Administration Oxycodone HCl 5 mg 09/10/23 10:41 09/10/23 11:09 Oxycodone Hcl Immed Release 5 Mg Tablet PO 09/10/23 10:42 5 mg ONCE ONE Administration Medical Decision Making Medical Decision Making MDM Narrative: 32 yo otherwise healthy female presenting with recurrent LLE erythema, swelling and pain. Chart reviewed - negative doppler x2. treated with prednisone and abx. had autoimmune workup as an outpatient that she states was unremarkable labs today without leukocytosis. no fever or tachycardia to suggest sepsis. inflammatory markers elevated, nonspecific patient seen and evaluated by Dr. Worthington - taylor w/ longer treatment w/ PO abx. Differential Diagnosis Differential Diagnoses: The differential diagnosis associated with the presentation includes cellulitis, MRSA, eryspilas, rheumatologic disorder, vasculitis, tick bourne illness, less likely DVT or superficial thrombophlebitis Admission/Observation Consideration of admission/observation: Escalation of care including admission/observation considered recurrent cellulitis considered admit but no signs of sepsis Lab Data MDM Lab Attestation statement: I reviewed the patient's lab results. mild anemia which is new but no leukocytosis, mild elevations CRP and ESR. LFTs are normal 09/10/23 11:14 09/10/23 11:14 Labs: Lab Results 09/10/23 Range/Units 11:14 WBC 8.8 (4.8-10.8) X10*3/uL RBC 4.27 (4.20-5.50) X10*6/uL Hgb 11.6 L (12.0-16.0) g/dl Hct 36.6 L (37.0-47.0) % MCV 85.7 (80.0-98.0) fL MCH 27.2 (27.0-33.0) pg MCHC 31.7 (31.0-35.0) g/dl RDW 14.6 (11.0-16.0) % Plt Count 170 (160-400) X10*3/uL MPV 11.5 (9.4-12.3) fL Immature Gran % (Auto) 0.6 H (0.0-0.4) % Neut % (Auto) 63.0 (45-73) % Lymph % (Auto) 27.8 (20-40) % [place] % (Auto) 6.9 (2-11) % Eos % (Auto) 1.1 (0-4) % Baso % (Auto) 0.6 (0-2) % Lymph # (Auto) 2.5 (1.2-4.9) X10*3/uL [place] # (Auto) 0.6 (0.1-1.2) X10*3/uL Eos # (Auto) 0.1 (0.0-0.4) X10*3/uL Baso # (Auto) 0.1 (0.0-0.2) X10*3/uL Abs Immat Gran (auto) 0.05 H (0.00-0.03) X10*3/uL Absolute Neuts (auto) 5.6 (2.0-8.3) x10*3/uL Absolute Nucleated RBC 0.000 (0.0-0.012) X10*3/uL Nucleated RBC % (auto) 0.0 (0.0-0.2) /100WBC ESR 25 H (0-20) MM/HR Sodium 141 (135-145) mmol/L Potassium 3.6 (3.3-5.1) mmol/L Chloride 108 (96-108) mmol/L Carbon Dioxide 27 (22-29) mmol/L Anion Gap 10 L (12-20) BUN 6 L (9-16) mg/dL Creatinine 0.62 (0.5-1.4) mg/dL Estim Creat Clear Calc 151.8 Estimated GFR > 60 Random Glucose 85 (60-115) mg/dL Calcium 9.3 (8.4-10.2) mg/dL Magnesium 2.0 (1.6-2.6) mg/dL Total Bilirubin 0.3 (0.0-1.0) mg/dL Direct Bilirubin 0.1 (0.0-0.5) mg/dL AST 10 (5-31) U/L ALT 19 (0-31) U/L Alkaline Phosphatase 66 (39-117) U/L C-Reactive Protein 3.45 H (< or = 0.50) mg/dL Total Protein 7.2 (6.5-8.0) g/dL Albumin 4.1 (3.5-5.0) g/dL External Record Review External record reviewed: Office record, Outpatient record, Prior outpatient labs and Prior outpatient radiology Tests considered The following testing was considered but not selected: considered repeat LE doppler Prescription Management I considered prescription management with: Pain Medication and Antibiotic Critical Care Time Critical Care Time Critical Care Time: No Discharge Plan Discharge Clinical Impression: Cellulitis Qualifiers: Site of cellulitis: extremity Site of cellulitis of extremity: lower extremity Laterality: left Qualified Code(s): L03.116 - Cellulitis of left lower limb Patient Disposition: Home, Self-Care Instructions: Cellulitis (DC) Additional Instructions: Take the prescribed antibiotics as directed, complete the entire course and do not miss any doses. You are given a 2 week course this time Elevate your leg when possible Take the prescribed ibuprofen as needed for pain Follow up with your doctor Also recommend following up with Infectious Disease for further evaluation and treatment. If you develop new or worsening symptoms call 911 or come back to the ER for further evaluation. Prescriptions: New doxycycline hyclate 100 mg tablet 100 mg PO BID Qty: 28 0RF cephalexin 500 mg capsule 500 mg PO Q6H 14 Days Qty: 56 0RF ibuprofen 600 mg tablet 600 mg PO Q8H PRN (Reason: pain) Qty: 14 0RF ondansetron 4 mg tablet,disintegrating 4 mg PO Q8H PRN (Reason: nausea and vomiting) Qty: 7 0RF No Action diphenhydramine HCl [Benadryl Allergy] 25 mg tablet 25 mg PO TID PRN (Reason: nausea and vomiting) Qty: 10 0RF Excedrin Migraine 250-250-65 mg tablet 2 tab PO Q6H PRN (Reason: pain) Qty: 10 0RF metoclopramide HCl [Reglan] 10 mg tablet 10 mg PO Q6H PRN (Reason: nausea and vomiting) Qty: 10 0RF prednisone 20 mg tablet 20 mg PO DAILY Qty: 4 0RF cephalexin 500 mg capsule 500 mg PO QID 7 Days Qty: 28 0RF doxycycline hyclate 100 mg tablet 100 mg PO BID 7 Days Qty: 14 0RF Referrals: TONO STODDARD MD [Physician] - (recurrent LLE cellulitis) Stand Alone Forms: Work/School Release Interventions: ED Discharge Assessment Last Done: 09/10/23 12:55 Discharge Date/Time: 09/10/23 12:56
[2023-09-10] MEDS: cephALEXin 500 MG CAPSULE PO (11:09)
[2023-09-10] MEDS: Doxycycline Monohydrate 100 MG CAPSULE PO (11:09)
[2023-09-10] MEDS: oxyCODONE HCl Immed Release 5 MG TABLET PO (11:09)
[2023-09-10 11:17] LABS: MANUAL DIFF FLAG NO
[2023-09-10 11:19] LABS: Basophils Absolute Auto 0.1 X10*3/uL (0.0-0.2); Basophils Percent Auto 0.6 % (0-2); Eosinophils Absolute Auto 0.1 X10*3/uL (0.0-0.4); Eosinophils Percent Auto 1.1 % (0-4); Hematocrit 36.6 % (37.0-47.0); Hemoglobin 11.6 g/dl (12.0-16.0); Imm Gran Abs Auto 0.05 X10*3/uL (0.00-0.03); Imm Gran Pct Auto 0.6 % (0.0-0.4); Lymphocytes Absolute Auto 2.5 X10*3/uL (1.2-4.9); Lymphocytes Percent Auto 27.8 % (20-40); Mean Corpuscular HGB Conc 31.7 g/dl (31.0-35.0); Mean Corpuscular Hemoglobin 27.2 pg (27.0-33.0); Mean Corpuscular Volume 85.7 fL (80.0-98.0); Mean Platelet Volume 11.5 fL (9.4-12.3); Monocytes Absolute Auto 0.6 X10*3/uL (0.1-1.2); Monocytes Percent Auto 6.9 % (2-11); Neutrophils Absolute Auto 5.6 x10*3/uL (2.0-8.3); Platelet Count 170 X10*3/uL (160-400); Red Blood Count 4.27 X10*6/uL (4.20-5.50); Red Cell Distribution Width 14.6 % (11.0-16.0); White Blood Count 8.8 X10*3/uL (4.8-10.8)
[2023-09-10 11:35] LABS: Alanine Aminotransferase 19 U/L (0-31); Albumin Level 4.1 g/dL (3.5-5.0); Alkaline Phosphatase 66 U/L (39-117); Anion Gap 10 (12-20); Aspartate Amino Transferase 10 U/L (5-31); Bilirubin Direct 0.1 mg/dL (0.0-0.5); Bilirubin Total 0.3 mg/dL (0.0-1.0); Blood Urea Nitrogen 6 mg/dL (9-16); C Reactive Protein 3.45 mg/dL (< or = 0.50); Calcium 9.3 mg/dL (8.4-10.2); Carbon Dioxide 27 mmol/L (22-29); Chloride 108 mmol/L (96-108); Creatinine Clr Calc Pharmacy 151.8; Estimated Glomerular Filt Rate > 60; Glucose Random 85 mg/dL (60-115); Potassium 3.6 mmol/L (3.3-5.1); Sodium 141 mmol/L (135-145); Total Protein 7.2 g/dL (6.5-8.0)
[2023-09-10 11:57] LABS: Erythrocyte Sedimentation Rate 25 MM/HR (0-20)
[2023-09-10 12:55] VITALS: BP 131/79; PULSE 73; RESP 20; TEMP 36.9
[2023-09-11 21:14] LABS: Lyme Abs Screen <0.90 index
[2023-09-12 18:03] LABS: A. Phagocytphilium DNA,RT-PCR NOT DETECTED (NOT DETECTED); Babesia Microti DNA, RT-PCR NOT DETECTED (NOT DETECTED); Borrelia Miyamotoi,DNA RT-PCR NOT DETECTED (NOT DETECTED); E.Chaffeensis DNA RT-PCR NOT DETECTED (NOT DETECTED); Lyme(Borrelia ssp)DNA RT-PCR NOT DETECTED (NOT DETECTED)
== END 2023-09-10 12:56 | disposition home or self-care (01) ==
PROVIDERS: Physician Assistant; Emergency Provider Emergency Medicine
DX: L03.116 Cellulitis of left lower limb (principal); M79.10 Myalgia, unspecified site; Z79.899 Other long term (current) drug therapy
CPT/HCPCS: 36415; 80048; 80076; 83735; 85025; 85652; 86140; 86617; 86618; 87468; 87469; 87478; 87484; 87798; 99283

== ENCOUNTER 2024-05-26 08:18 | Emergency (ER) | payer OTHER, SELFPAY ==
[2024-05-26 08:24] VITALS: BP 141/94; PULSE 86; RESP 18; TEMP 36.7; O2SAT 100; BMI 30.1
--- NOTE | 2024-05-26 08:34 | ED_ITS ---
HPI - General Adult General Chief complaint: General Medical Stated complaint: Redness L leg/Nausea/Body aches Time Seen by Provider: 05/26/24 08:34 Source: patient and RN notes reviewed Mode of arrival: ambulatory Limitations: no limitations History of Present Illness ED Provider: Michaela Garcia PA-C HPI narrative: This is a 33-year-old female, with a history of recurrent lower extremity rashes/cellulitis, who presents emergency department with complaints of left leg rash, pain, body aches and chills. Patient states that she noticed this area on her zheng yesterday which has since progressed incise in his starting to travel proximally. She endorses some body aches. She denies any fevers. Denies any chest pain or shortness of breath Denies taking any medications at home prior to arrival. She has been seen here in the emergency room several times for similar rashes and states that typically gets better after antibiotics. Denies any recent swimming, complaint: Lower extremity rash Onset (ago): day(s) Radiation: non-radiation Pain Consistency: constant Relieving factors: none Exacerbating factors: none Associated symptoms: denies other symptoms Treatments prior to arrival: none Related Data Previous Rx's ?Medication ?Instructions ?Recorded [id number] 250 2 tab PO Q6H PRN pain #10 tabs 10/20/20 mg-250 mg-65 mg tablet (Excedrin Migraine) diphenhydramine HCl 25 mg tablet 25 mg PO TID PRN nausea and 10/20/20 (Benadryl Allergy) vomiting #10 tabs metoclopramide HCl 10 mg tablet 10 mg PO Q6H PRN nausea and 10/20/20 (Reglan) vomiting #10 tabs cephalexin 500 mg capsule 500 mg PO QID 7 days #28 caps 08/03/23 doxycycline hyclate 100 mg tablet 100 mg PO BID 7 days #14 tabs 08/03/23 prednisone 20 mg tablet 20 mg PO DAILY #4 tabs 08/24/23 cephalexin 500 mg capsule 500 mg PO Q6H 14 days #56 caps 09/10/23 doxycycline hyclate 100 mg tablet 100 mg PO BID #28 tabs 09/10/23 ibuprofen 600 mg tablet 600 mg PO Q8H PRN pain #14 tabs 09/10/23 ondansetron 4 mg disintegrating 4 mg PO Q8H PRN nausea and 09/10/23 tablet vomiting #7 tabs acetaminophen 650 mg 650 mg PO Q8H PRN pain #30 tabs 05/26/24 tablet,extended release (Tylenol 8 Hour) cephalexin 500 mg capsule 500 mg PO QID 7 days #28 caps 05/26/24 doxycycline hyclate 100 mg capsule 100 mg PO DAILY 7 days #7 caps 05/26/24 ibuprofen 600 mg tablet 600 mg PO Q6H PRN pain #30 tabs 05/26/24 ondansetron 4 mg disintegrating 4 mg PO Q6H PRN nausea and 05/26/24 tablet vomiting #10 tabs Allergies Allergy/AdvReac Type Severity Reaction Status Date / Time No Known Allergies Allergy Mild UNKNOWN Verified 05/26/24 08:28 Review of Systems 2 Review of Systems: Yes all other systems are reviewed and are negative Constitutional: Constitutional: Reports as per [facility] Past Medical History Attestation statement: The following information was validated with the patient. Medical History Migraine Social History Social History Alcohol intake: never Advance Directives: No Advance Directives Information Provided: Yes Do you have a plan to hurt others: No Plan Physical Exam ED Vital Signs: Vital Signs - 24 hr 05/26/24 08:24 05/26/24 10:04 Temperature 98.0 F 98.1 F Pulse Rate 86 87 Respiratory Rate 18 16 Blood Pressure 141/94 H 151/96 H Pulse Oximetry 100 98 Oxygen Delivery Method Room Air Room Air BMI result Body Mass Index 30.1 Const General: cooperative, comfortable and no acute distress Orientation/consciousness: patient oriented x3 Limitations: no limitations [facility] Head: Yes normal to inspection, Yes normocephalic and Yes atraumatic Ears: hearing grossly normal bilaterally General nose exam: Normal external nose present Face and sinus: Yes normal facial exam Mouth: Normal oral and palatal mucosa present, oropharynx normal and moist mucous membranes Throat: Yes posterior oropharynx normal Eyes General: appearance normal, both eyes and all related structures Eyelids: Yes eyelids normal Conjunctivae: conjunctivae normal Sclerae: sclerae normal Pupils: Equal, round and reactive pupils present EOM: EOMs intact bilaterally Neck Neck: Yes normal visual inspection, Yes full ROM and Yes no lymphadenopathy Lymphatic: no lymphadenopathy noted Chest Chest palpation & inspection: normal inspection of the chest Resp Effort & Inspection: normal respiratory effort and able to speak in complete sentences Auscultation: clear to auscultation bilaterally, no crackles, no rales, no rhonchi and no wheezes Cardio Rate: regular rate Rhythm: regular rhythm Heart sounds: S1 normal heart sound present and S2 normal heart sound present GI Inspection: Yes normal to inspection Skin General skin exam: no rashes or lesions noted Trauma: no lacerations or abrasions Wounds: no wounds Neuro General: patient oriented x3 and moves all extremities Cranial nerves: Yes Equal, round and reactive pupils present Extrem Other: Right lower extremity with [id number] irregularly shaped area of erythema and warmth. TTP. Stra[place] DP pulse. No calf tenderness. General: Yes normal to inspection Right upper extremity: normal to inspection Left upper extremity: normal to inspection Right lower extremity: normal to inspection Left lower extremity: normal to inspection Medications Administered Discontinued Medications Generic Name Dose Route Start Last Admin Trade Name Freq PRN Reason Stop Dose Admin Cephalexin HCl 500 mg 05/26/24 09:04 05/26/24 09:13 Cephalexin 500 Mg Capsule PO 05/26/24 09:05 500 mg ONCE ONE Administration Doxycycline Monohydrate 100 mg 05/26/24 09:04 05/26/24 09:13 Doxycycline Monohydrate 100 Mg Capsule PO 05/26/24 09:05 100 mg ONCE ONE Administration Ketorolac Tromethamine 30 mg 05/26/24 09:04 05/26/24 09:13 Ketorolac Tromethamine 30 Mg/Ml Vial IM 05/26/24 09:05 30 mg ONCE ONE Administration Ondansetron HCl 4 mg 05/26/24 10:01 05/26/24 10:05 Ondansetron Odt 4 Mg Tab.Rapdis TRANSLINGU 05/26/24 10:02 4 mg ONCE ONE Administration Medical Decision Making Medical Decision Making MDM Narrative: This is a 33-year-old female who presents emergency department with left lower extremity redness, swelling and pain since yesterday. Area has spread and redness since yesterday. On arrival, patient mildly hypertensive at 141/94, she is afebrile, nontoxic-appearing. Exam findings concerning for cellulitis. Labs were obtained out in triage, significant for leukocytosis at 16.8, with left shift, chemistry within normal limits. She has not currently on antibiotics therefore given stable condition at this time, will treat with oral antibiotics. Outlined the area of erythema and strongly urged to return or seek emergent care if this area of erythema extends beyond this line. She was given her 1st dose of antibiotics in the department today. She became nauseous after receiving doxycycline on an empty stomach therefore Zofran 4 mg ODT was ordered. She is feeling much better and we will closely monitor symptoms at home. She understands agrees with plan. Return precautions given. Patient stable for discharge. Differential Diagnosis Differential Diagnoses: The differential diagnosis associated with the presentation includes Cellulitis, vasculitis, DVT-unlikely, impetigo, contact dermatitis Lab Data MDM Lab Attestation statement: I reviewed the patient's lab results. Leukocytosis noted at 16.8, left shift noted, chemistry within normal limits. Negative viral swabs. 05/26/24 08:35 05/26/24 08:35 Labs: Lab Results 05/26/24 Range/Units 08:35 WBC 16.8 H (4.8-10.8) X10*3/uL RBC 4.55 (4.20-5.50) X10*6/uL Hgb 13.1 (12.0-16.0) g/dl Hct 38.6 (37.0-47.0) % MCV 84.8 (80.0-98.0) fL MCH 28.8 (27.0-33.0) pg MCHC 33.9 (31.0-35.0) g/dl RDW 14.3 (11.0-16.0) % Plt Count 160 (160-400) X10*3/uL MPV 12.0 (9.4-12.3) fL Immature Gran % (Auto) 0.9 H (0.0-0.4) % Neut % (Auto) 86.6 H (45-73) % Lymph % (Auto) 7.8 L (20-40) % [place] % (Auto) 4.2 (2-11) % Eos % (Auto) 0.1 (0-4) % Baso % (Auto) 0.4 (0-2) % Lymph # (Auto) 1.3 (1.2-4.9) X10*3/uL [place] # (Auto) 0.7 (0.1-1.2) X10*3/uL Eos # (Auto) 0.0 (0.0-0.4) X10*3/uL Baso # (Auto) 0.1 (0.0-0.2) X10*3/uL Abs Immat Gran (auto) 0.15 H (0.00-0.03) X10*3/uL Absolute Neuts (auto) 14.6 H (2.0-8.3) x10*3/uL Absolute Nucleated RBC 0.000 (0.0-0.012) X10*3/uL Nucleated RBC % (auto) 0.0 (0.0-0.2) /100WBC Sodium 138 (135-145) mmol/L Potassium 3.3 (3.3-5.1) mmol/L Chloride 107 (96-108) mmol/L Carbon Dioxide 22 (22-29) mmol/L Anion Gap 12 (12-20) BUN 7 L (9-16) mg/dL Creatinine 0.66 (0.5-1.4) mg/dL Estim Creat Clear Calc 136.1 Estimated GFR > 60 Random Glucose 103 (60-115) mg/dL Calcium 9.2 (8.4-10.2) mg/dL Total Bilirubin 0.6 (0.0-1.0) mg/dL AST 15 (5-31) U/L ALT 19 (0-31) U/L Alkaline Phosphatase 68 (39-117) U/L Total Protein 7.7 (6.5-8.0) g/dL Albumin 4.3 (3.5-5.0) g/dL Influenza Type A (PCR) NEGATIVE (Negative) Influenza Type B (PCR) NEGATIVE (Negative) RSV RNA Qual (PCR) NEGATIVE (Negative) SARS-CoV-2 RNA (RT-PCR) NEGATIVE (Negative) Discharge Plan Discharge Clinical Impression: Cellulitis Qualifiers: Site of cellulitis: extremity Site of cellulitis of extremity: lower extremity Laterality: left Qualified Code(s): L03.116 - Cellulitis of left lower limb Patient Disposition: Home, Self-Care Instructions: Cellulitis (ED) Additional Instructions: You were seen in the emergency department due to left lower leg rash. You have a skin infection that needs antibiotic treatment for. Please take full course of antibiotics even if your symptoms improve. Drink plenty of fluids get plenty of rest. Alternate between ibuprofen and Tylenol as needed for pain. If any new or worsening symptoms occur including but not limited to worsening redness, pain, redness extending beyond outlined markings, please return for re- evaluation. Prescriptions: New cephalexin 500 mg capsule 500 mg PO QID 7 Days Qty: 28 0RF doxycycline hyclate 100 mg capsule 100 mg PO DAILY 7 Days Qty: 7 0RF ibuprofen 600 mg tablet 600 mg PO Q6H PRN (Reason: pain) Qty: 30 0RF acetaminophen [Tylenol 8 Hour] 650 mg tablet extended release 650 mg PO Q8H PRN (Reason: pain) Qty: 30 0RF ondansetron 4 mg tablet,disintegrating 4 mg PO Q6H PRN (Reason: nausea and vomiting) Qty: 10 0RF No Action diphenhydramine HCl [Benadryl Allergy] 25 mg tablet 25 mg PO TID PRN (Reason: nausea and vomiting) Qty: 10 0RF Excedrin Migraine 250-250-65 mg tablet 2 tab PO Q6H PRN (Reason: pain) Qty: 10 0RF metoclopramide HCl [Reglan] 10 mg tablet 10 mg PO Q6H PRN (Reason: nausea and vomiting) Qty: 10 0RF prednisone 20 mg tablet 20 mg PO DAILY Qty: 4 0RF cephalexin 500 mg capsule 500 mg PO QID 7 Days Qty: 28 0RF doxycycline hyclate 100 mg tablet 100 mg PO BID 7 Days Qty: 14 0RF doxycycline hyclate 100 mg tablet 100 mg PO BID Qty: 28 0RF cephalexin 500 mg capsule 500 mg PO Q6H 14 Days Qty: 56 0RF ibuprofen 600 mg tablet 600 mg PO Q8H PRN (Reason: pain) Qty: 14 0RF ondansetron 4 mg tablet,disintegrating 4 mg PO Q8H PRN (Reason: nausea and vomiting) Qty: 7 0RF Stand Alone Forms: Work/School Release Print Language: Mohawk
[2024-05-26 08:49] LABS: MANUAL DIFF FLAG NO
[2024-05-26 08:53] LABS: Basophils Absolute Auto 0.1 X10*3/uL (0.0-0.2); Basophils Percent Auto 0.4 % (0-2); Eosinophils Percent Auto 0.1 % (0-4); Hematocrit 38.6 % (37.0-47.0); Hemoglobin 13.1 g/dl (12.0-16.0); Imm Gran Abs Auto 0.15 X10*3/uL (0.00-0.03); Imm Gran Pct Auto 0.9 % (0.0-0.4); Lymphocytes Absolute Auto 1.3 X10*3/uL (1.2-4.9); Lymphocytes Percent Auto 7.8 % (20-40); Mean Corpuscular HGB Conc 33.9 g/dl (31.0-35.0); Mean Corpuscular Hemoglobin 28.8 pg (27.0-33.0); Mean Corpuscular Volume 84.8 fL (80.0-98.0); Monocytes Absolute Auto 0.7 X10*3/uL (0.1-1.2); Monocytes Percent Auto 4.2 % (2-11); Neutrophils Absolute Auto 14.6 x10*3/uL (2.0-8.3); Neutrophils Percent Auto 86.6 % (45-73); Platelet Count 160 X10*3/uL (160-400); Red Blood Count 4.55 X10*6/uL (4.20-5.50); Red Cell Distribution Width 14.3 % (11.0-16.0); White Blood Count 16.8 X10*3/uL (4.8-10.8)
--- NOTE | 2024-05-26 08:54 | PC.NURSE ---
pt presents to the ED from triage w/ recurring concern for cellulitis. pt verbalizes this is the 4th time this has happened to her. LLE displays w/ redness/swelling/taught/shiny skin. warm to the touch. afebrile. nontender besides when standing upright and she feels blood is flowing through her legs. outline of affected area marked w/ skin marker for reassessment. pt also verbalizing body aches, chills, nausea. pt seen by ED provider. plan of care ongoing.
[2024-05-26 09:11] LABS: Alanine Aminotransferase 19 U/L (0-31); Albumin Level 4.3 g/dL (3.5-5.0); Alkaline Phosphatase 68 U/L (39-117); Anion Gap 12 (12-20); Aspartate Amino Transferase 15 U/L (5-31); Bilirubin Total 0.6 mg/dL (0.0-1.0); Blood Urea Nitrogen 7 mg/dL (9-16); Calcium 9.2 mg/dL (8.4-10.2); Carbon Dioxide 22 mmol/L (22-29); Chloride 107 mmol/L (96-108); Creatinine Clr Calc Pharmacy 136.1; Estimated Glomerular Filt Rate > 60; Glucose Random 103 mg/dL (60-115); Potassium 3.3 mmol/L (3.3-5.1); Sodium 138 mmol/L (135-145); Total Protein 7.7 g/dL (6.5-8.0)
[2024-05-26] MEDS: Ketorolac Tromethamine 30 MG/ML VIAL IM (09:13)
[2024-05-26] MEDS: cephALEXin 500 MG CAPSULE PO (09:13)
[2024-05-26] MEDS: Doxycycline Monohydrate 100 MG CAPSULE PO (09:13)
--- NOTE | 2024-05-26 09:18 | PC.NURSE ---
pt medicated per provider order. effectiveness pending.
[2024-05-26 09:36] LABS: Influenza A PCR NEGATIVE (Negative); Influenza B PCR NEGATIVE (Negative); Resp Syncy Virus RNA Qual PCR NEGATIVE (Negative); SARS COV2 PCR INHOUSE NEGATIVE (Negative)
[2024-05-26 10:04] VITALS: BP 151/96; PULSE 87; RESP 16; TEMP 36.7; O2SAT 98
[2024-05-26] MEDS: Ondansetron ODT 4 MG TAB.RAPDIS TRANSLINGU (10:05)
[2024-05-26 11:09] VITALS: BP 151/96; PULSE 87; RESP 16; TEMP 36.7; O2SAT 98
== END 2024-05-26 11:09 | disposition home or self-care (01) ==
PROVIDERS: Emergency Provider Emergency Medicine
DX: L03.116 Cellulitis of left lower limb (principal); M79.10 Myalgia, unspecified site; R11.2 Nausea with vomiting, unspecified; Z03.818 Encounter for observation for suspected exposure to other biological agents ruled out; Z79.899 Other long term (current) drug therapy
CPT/HCPCS: 0241U; 80053; 85025; 96372; 99283; 99284; J1885

== ENCOUNTER 2024-06-30 16:23 | Emergency (ER) | payer OTHER, SELFPAY ==
--- NOTE | ~2024-06-30 | US_ITS ---
EXAMINATION: US VENOUS ULTRASOUND WITH DOPPLER LOWER EXTREMITY, LEFT CLINICAL INFORMATION: Pain, swelling. COMPARISON: Left lower extremity ultrasound 08/24/2023. TECHNIQUE: Ultrasound of the deep veins is performed from the hip to the calf with compression sonography and color and pulse Doppler assessment. Spectral analysis with color-flow imaging is performed. FINDINGS: There is normal venous compression and respiratory variation and augmented flow. The visualized common femoral vein, superficial femoral vein, profunda femoral vein, popliteal vein, and the trifurcation region shows no evidence of deep venous thrombosis. There is no significant popliteal fossa cyst. US/US venous duplex LE LT IMPRESSION: No DVT demonstrated in the left lower extremity. If the patient's symptoms persist, followup ultrasound in 5 days 7 days might be of value to exclude proximal propagation from a non-visualized calf vein.
[2024-06-30 16:33] VITALS: BP 153/102; PULSE 75; RESP 16; TEMP 36.6; O2SAT 98; BMI 29.9
--- NOTE | 2024-06-30 16:36 | ED_ITS ---
HPI - General Adult General Chief complaint: Extremity Injury, Lower Stated complaint: left leg rash pain Time Seen by Provider: 06/30/24 18:37 Source: patient and family Mode of arrival: ambulatory Limitations: no limitations History of Present Illness ED Provider: AURELIA LEWIS narrative: 33 yo female with migraines and recurrent burning itching rash to L lower extremity since July has been on antibiotics and steroids in the past. Has derm appointment this month 07/15 first one. She has fam hx of lupus in her sister. She thinks she has has sig lab work up done but is not sure. She also has chronic fungal infection on L 3-5th toes that despite keeping in clean using fungal cream and changing her shoes it always comes back. Her rash comes and goes and usually responds to therapy but it always comes back MD complaint: leg rash Onset (ago): month(s) (10) Location: left and lower extremity Radiation: non-radiation Severity: moderate Quality: aching and other (burning, pruritic) Pain Consistency: intermittent Relieving factors: none Exacerbating factors: other (palpation) Associated symptoms: denies other symptoms Treatments prior to arrival: none Related Data Previous Rx's ?Medication ?Instructions ?Recorded [id number]-[id number] 250 2 tab PO Q6H PRN pain #10 tabs 10/20/20 mg-250 mg-65 mg tablet (Excedrin Migraine) diphenhydramine HCl 25 mg tablet 25 mg PO TID PRN nausea and 10/20/20 (Benadryl Allergy) vomiting #10 tabs metoclopramide HCl 10 mg tablet 10 mg PO Q6H PRN nausea and 10/20/20 (Reglan) vomiting #10 tabs cephalexin 500 mg capsule 500 mg PO QID 7 days #28 caps 08/03/23 doxycycline hyclate 100 mg tablet 100 mg PO BID 7 days #14 tabs 08/03/23 prednisone 20 mg tablet 20 mg PO DAILY #4 tabs 08/24/23 cephalexin 500 mg capsule 500 mg PO Q6H 14 days #56 caps 09/10/23 doxycycline hyclate 100 mg tablet 100 mg PO BID #28 tabs 09/10/23 ibuprofen 600 mg tablet 600 mg PO Q8H PRN pain #14 tabs 09/10/23 ondansetron 4 mg disintegrating 4 mg PO Q8H PRN nausea and 09/10/23 tablet vomiting #7 tabs acetaminophen 650 mg 650 mg PO Q8H PRN pain #30 tabs 05/26/24 tablet,extended release (Tylenol 8 Hour) cephalexin 500 mg capsule 500 mg PO QID 7 days #28 caps 05/26/24 doxycycline hyclate 100 mg capsule 100 mg PO DAILY 7 days #7 caps 05/26/24 ibuprofen 600 mg tablet 600 mg PO Q6H PRN pain #30 tabs 05/26/24 ondansetron 4 mg disintegrating 4 mg PO Q6H PRN nausea and 05/26/24 tablet vomiting #10 tabs cephalexin 500 mg capsule 500 mg PO QID 7 days #28 caps 06/30/24 clotrimazole 1 % topical cream 1 appl topical BID 14 days #15 06/30/24 (Lotrimin AF (clotrimazole)) grams fluconazole 200 mg tablet 200 mg PO DAILY #5 tabs 06/30/24 (Diflucan) prednisone 10 mg tablet 10 mg PO DIRECTED #41 tabs 06/30/24 Allergies Allergy/AdvReac Type Severity Reaction Status Date / Time No Known Allergies Allergy Mild UNKNOWN Verified 06/30/24 16:38 Review of Systems 2 Review of Systems: Constitutional : No Fever, No Chills ENT/Mouth : No sore throat, No Rhinorrhea Eyes: No Eye Pain, No Swelling, No Redness Cardiovascular : No Chest Pain, No SOB Respiratory : No Cough, No Sputum Gastrointestinal : No Nausea, No Vomiting, No Diarrhea, No abdominal Pain Genitourinary : No Dysuria, No Hematuria Musculoskeletal : No joint pain, No Myalgias, No Joint Swelling Skin : No Skin Lesions, positive skin rash Neuro : No Weakness, No Numbness, No Headache Psych : No Anxiety, No Depression Heme/Lymph: No Bruising, No Bleeding,No Lymphadenopathy Endocrine : No Polyuria, No Polydipsia All other systems reviewed and are negative [facility] Past Medical History Attestation statement: The following information was validated with the patient. Source: old records reviewed Medical History Migraine Social History Social History Alcohol intake: never Advance Directives: No Advance Directives Information Provided: No Do you have a plan to hurt others: No Plan Physical Exam ED Vital Signs: Vital Signs - 24 hr 06/30/24 16:33 06/30/24 20:04 Temperature 97.8 F 98.7 F Pulse Rate 75 101 H Respiratory Rate 16 16 Blood Pressure 153/102 H 137/83 Pulse Oximetry 98 99 Oxygen Delivery Method Room Air Room Air BMI result Body Mass Index 29.9 Appearance: Alert. Oriented X3. No acute distress. Eyes: Pupils equal, round and reactive to light. ENT: Pharynx normal. Neck: Normal inspection. Neck supple. CVS: Normal heart rate and rhythm. Pulses normal. Respiratory: No respiratory distress. Breath sounds normal. Abdomen: Soft and nontender. Skin: Skin warm and dry. Normal skin color. Normal skin turgor. Extremities: left leg blanchable large pink patch that is not warm but it is sore to the touch there are small raised areas in it not fluctuance not abscess it does go around the medial aspect of the leg, distal NV intact, ttp into R upper calf, 3-5th toes macerated wet and discoloration of the toes. Neuro: Oriented X 3. No motor deficit. No sensory deficit. Course Course Course Narrative: RME performed by Layla Rainey PA-C. Patient is a 33 year old assigned female at presenting to the emergency department with left lower leg pain and welling. Patient states she has been having issues on and off with this over the last 11 months. Patient states that her skin is burning and she can't put socks on. Detailed physical exam and review of systems are deferred to the psychiatric clinician. Labs ordered. Patient placed back in the waiting room pending room availability and results. Medications Administered Discontinued Medications Generic Name Dose Route Start Last Admin Trade Name Ritu PRN Reason Stop Dose Admin Hydrocodone Bitart/Acetaminophen 1 tab 06/30/24 18:56 06/30/24 19:27 Hydrocodone Bit/Acetam 5/325 Tablet PO 06/30/24 18:57 1 tab ONCE ONE Administration Prednisone 60 mg 06/30/24 18:56 06/30/24 19:27 Prednisone 20 Mg Tablet PO 06/30/24 18:57 60 mg ONCE ONE Administration Medical Decision Making Medical Decision Making MDM Narrative: 33 yo female with recurrent L leg rash at this time it looks more autoimmune or vasculiitis picture - sister has lupus at this time WENDY and hemoglobin A1c ordered, DVT study and plan to start on prednisone taper, topical antifungal and possible oral diflucan. She definitely needs a derm biopsy. Differential Diagnosis Differential Diagnoses: The differential diagnosis associated with the presentation includes vasculiitis, autoimmune, cellulitis Admission/Observation Consideration of admission/observation: Escalation of care including admission/observation considered not toxic stable for DC Lab Data MDM Lab Attestation statement: I reviewed the patient's lab results. 06/30/24 16:54 06/30/24 16:54 Labs: Lab Results 06/30/24 Range/Units 16:54 WBC 14.9 H (4.8-10.8) X10*3/uL RBC 4.62 (4.20-5.50) X10*6/uL Hgb 13.2 (12.0-16.0) g/dl Hct 39.7 (37.0-47.0) % MCV 85.9 (80.0-98.0) fL MCH 28.6 (27.0-33.0) pg MCHC 33.2 (31.0-35.0) g/dl RDW 14.0 (11.0-16.0) % Plt Count 166 (160-400) X10*3/uL MPV 12.2 (9.4-12.3) fL Immature Gran % (Auto) 0.4 (0.0-0.4) % Neut % (Auto) 76.1 H (45-73) % Lymph % (Auto) 17.7 L (20-40) % [place] % (Auto) 3.9 (2-11) % Eos % (Auto) 1.5 (0-4) % Baso % (Auto) 0.4 (0-2) % Lymph # (Auto) 2.6 (1.2-4.9) X10*3/uL [place] # (Auto) 0.6 (0.1-1.2) X10*3/uL Eos # (Auto) 0.2 (0.0-0.4) X10*3/uL Baso # (Auto) 0.1 (0.0-0.2) X10*3/uL Abs Immat Gran (auto) 0.06 H (0.00-0.03) X10*3/uL Absolute Neuts (auto) 11.3 H (2.0-8.3) x10*3/uL Absolute Nucleated RBC 0.000 (0.0-0.012) X10*3/uL Nucleated RBC % (auto) 0.0 (0.0-0.2) /100WBC ESR 11 (0-20) MM/HR Sodium 142 (135-145) mmol/L Potassium 3.4 (3.3-5.1) mmol/L Chloride 107 (96-108) mmol/L Carbon Dioxide 26 (22-29) mmol/L Anion Gap 12 (12-20) BUN 8 L (9-16) mg/dL Creatinine 0.70 (0.5-1.4) mg/dL Estim Creat Clear Calc 128.0 Estimated GFR > 60 Random Glucose 87 (60-115) mg/dL Calcium 9.6 (8.4-10.2) mg/dL Magnesium 1.7 (1.6-2.6) mg/dL Total Bilirubin 0.3 (0.0-1.0) mg/dL AST 11 (5-31) U/L ALT 13 (0-31) U/L Alkaline Phosphatase 71 (39-117) U/L C-Reactive Protein 0.45 (< or = 0.50) mg/dL Total Protein 7.3 (6.5-8.0) g/dL Albumin 4.2 (3.5-5.0) g/dL Independent Interpretation I performed an independent interpretation of an: Ultrasound (negative for DVT) Radiology Impression Discussion of test interpretation with radiology: I have reviewed the radiologist's reading. Independent Historian Clinical information obtained from an independent historian. 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 operator as scheduled take all medications as prescribed Prescriptions: New prednisone 10 mg tablet 10 mg PO DIRECTED Qty: 41 0RF Rx Instructions: see taper instructions 60mg on day 1-5, 40mg on day 6, 30mg on day 7, 20mg on day 8, 10mg on day 9, 5mg on day 10 cephalexin 500 mg capsule 500 mg PO QID 7 Days Qty: 28 0RF fluconazole [Diflucan] 200 mg tablet 200 mg PO DAILY Qty: 5 0RF clotrimazole [Lotrimin AF (clotrimazole)] 1 % cream 1 appl topical BID 14 Days Qty: 15 0RF No Action diphenhydramine HCl [Benadryl Allergy] 25 mg tablet 25 mg PO TID PRN (Reason: nausea and vomiting) Qty: 10 0RF Excedrin Migraine 250-250-65 mg tablet 2 tab PO Q6H PRN (Reason: pain) Qty: 10 0RF metoclopramide HCl [Reglan] 10 mg tablet 10 mg PO Q6H PRN (Reason: nausea and vomiting) Qty: 10 0RF prednisone 20 mg tablet 20 mg PO DAILY Qty: 4 0RF cephalexin 500 mg capsule 500 mg PO QID 7 Days Qty: 28 0RF doxycycline hyclate 100 mg tablet 100 mg PO BID 7 Days Qty: 14 0RF doxycycline hyclate 100 mg tablet 100 mg PO BID Qty: 28 0RF cephalexin 500 mg capsule 500 mg PO Q6H 14 Days Qty: 56 0RF ibuprofen 600 mg tablet 600 mg PO Q8H PRN (Reason: pain) Qty: 14 0RF ondansetron 4 mg tablet,disintegrating 4 mg PO Q8H PRN (Reason: nausea and vomiting) Qty: 7 0RF cephalexin 500 mg capsule 500 mg PO QID 7 Days Qty: 28 0RF doxycycline hyclate 100 mg capsule 100 mg PO DAILY 7 Days Qty: 7 0RF ibuprofen 600 mg tablet 600 mg PO Q6H PRN (Reason: pain) Qty: 30 0RF acetaminophen [Tylenol 8 Hour] 650 mg tablet extended release 650 mg PO Q8H PRN (Reason: pain) Qty: 30 0RF ondansetron 4 mg tablet,disintegrating 4 mg PO Q6H PRN (Reason: nausea and vomiting) Qty: 10 0RF Stand Alone Forms: Work/School Release Print Language: Pakistani
[2024-06-30 16:59] LABS: MANUAL DIFF FLAG NO
[2024-06-30 17:05] LABS: Basophils Absolute Auto 0.1 X10*3/uL (0.0-0.2); Basophils Percent Auto 0.4 % (0-2); Eosinophils Absolute Auto 0.2 X10*3/uL (0.0-0.4); Eosinophils Percent Auto 1.5 % (0-4); Hematocrit 39.7 % (37.0-47.0); Hemoglobin 13.2 g/dl (12.0-16.0); Imm Gran Abs Auto 0.06 X10*3/uL (0.00-0.03); Imm Gran Pct Auto 0.4 % (0.0-0.4); Lymphocytes Absolute Auto 2.6 X10*3/uL (1.2-4.9); Lymphocytes Percent Auto 17.7 % (20-40); Mean Corpuscular HGB Conc 33.2 g/dl (31.0-35.0); Mean Corpuscular Hemoglobin 28.6 pg (27.0-33.0); Mean Corpuscular Volume 85.9 fL (80.0-98.0); Mean Platelet Volume 12.2 fL (9.4-12.3); Monocytes Absolute Auto 0.6 X10*3/uL (0.1-1.2); Monocytes Percent Auto 3.9 % (2-11); Neutrophils Absolute Auto 11.3 x10*3/uL (2.0-8.3); Neutrophils Percent Auto 76.1 % (45-73); Platelet Count 166 X10*3/uL (160-400); Red Blood Count 4.62 X10*6/uL (4.20-5.50); White Blood Count 14.9 X10*3/uL (4.8-10.8)
[2024-06-30 17:15] LABS: Alanine Aminotransferase 13 U/L (0-31); Albumin Level 4.2 g/dL (3.5-5.0); Alkaline Phosphatase 71 U/L (39-117); Anion Gap 12 (12-20); Aspartate Amino Transferase 11 U/L (5-31); Bilirubin Total 0.3 mg/dL (0.0-1.0); Blood Urea Nitrogen 8 mg/dL (9-16); C Reactive Protein 0.45 mg/dL (< or = 0.50); Calcium 9.6 mg/dL (8.4-10.2); Carbon Dioxide 26 mmol/L (22-29); Chloride 107 mmol/L (96-108); Estimated Glomerular Filt Rate > 60; Glucose Random 87 mg/dL (60-115); Magnesium 1.7 mg/dL (1.6-2.6); Potassium 3.4 mmol/L (3.3-5.1); Sodium 142 mmol/L (135-145); Total Protein 7.3 g/dL (6.5-8.0)
[2024-06-30 17:50] LABS: Erythrocyte Sedimentation Rate 11 MM/HR (0-20)
[2024-06-30] MEDS: predniSONE 20 MG TABLET 60 MG PO (19:27)
[2024-06-30] MEDS: HYDROcodone Bit/Acetam 5/325 TABLET 1 TAB PO (19:27)
--- NOTE | 2024-06-30 19:51 | PC.NURSE ---
Report taken from Kristin PEARCE assumed care of pt at 1900. Pt medicated per JAN for 10/10 LLE pain. US at bedside for imaging. Awaiting result and improvement in symptoms, aware of plan of care.
[2024-06-30 20:04] VITALS: BP 137/83; PULSE 101; RESP 16; TEMP 37.1; O2SAT 99
[2024-06-30 20:46] VITALS: BP 137/83; PULSE 101; RESP 16; TEMP 37.1; O2SAT 99
[2024-07-01 07:54] LABS: Estimated Average Glucose 97 mg/dL
[2024-07-07 12:53] LABS: Anti Nuclear Antibody Screen NEGATIVE (NEGATIVE)
== END 2024-06-30 20:47 | disposition home or self-care (01) ==
PROVIDERS: Physician Assistant Medical; Emergency Provider Emergency Medicine
DX: R21 Rash and other nonspecific skin eruption (principal); L29.9 Pruritus, unspecified; R60.0 Localized edema; Z79.899 Other long term (current) drug therapy
CPT/HCPCS: 36415; 80053; 83036; 83735; 85025; 85652; 86038; 86140; 93971; 99284

== ENCOUNTER 2025-06-05 10:04 | Emergency (ER) | payer OTHER, SELFPAY ==
[2025-06-05 10:11] VITALS: BP 124/77; PULSE 99; RESP 16; TEMP 36.2; O2SAT 100; BMI 31.5
--- NOTE | 2025-06-05 10:20 | ED_ITS ---
HPI - General Adult General Chief complaint: General Medical Stated complaint: rash on left leg and pain Time Seen by Provider: 06/05/25 10:18 Source: patient Mode of arrival: ambulatory Limitations: no limitations History of Present Illness ED Provider: Layla Rainey PA-C HPI narrative: Patient is a 34 year old assigned female at with a history of migraines and recurrent left lower leg redness presenting to the emergency department today with left lower leg redness and pain. Patient states that this has happened a few times before and she has been given antibiotics and other things in the past that have helped. Patient states that this episode began this morning. 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 Patient denies any dizziness, lightheadedness, abdominal pain, nausea, vomiting, fever, chills, blurry vision, double vision, loss of vision, chest pain, difficulty breathing, shortness of breath, back pain, night sweats, pain with urination, increased urinary frequency, increased urinary urgency, blood in her urine or stool, syncope or a near syncopal episode, recent trauma or falls, bowel incontinence, bladder incontinence, or any other complaints at this time. Relieving factors: none Exacerbating factors: none Associated symptoms: denies other symptoms Treatments prior to arrival: none Related Data Previous Rx's ?Medication ?Instructions ?Recorded [id number] 250 2 tab PO Q6H PRN pa in #10 tabs 10/20/20 mg-250 mg-65 mg tablet (Excedrin Migraine) diphenhydramine HCl 25 mg tablet 25 mg PO TID PRN naus ea and 10/20/20 (Benadryl Allergy) vomiting #10 tabs metoclopramide HCl 10 mg tablet 10 mg PO Q6H PRN nause a and 10/20/20 (Reglan) vomiting #10 tabs cephalexin 500 mg capsule 500 mg PO QID 7 days #28 cap s 08/03/23 doxycycline hyclate 100 mg tablet 100 mg PO BID 7 days #14 tabs 08/03/23 prednisone 20 mg tablet 20 mg PO DAILY #4 tabs 08/24 cephalexin 500 mg capsule 500 mg PO Q6H 14 days #56 ca ps 09/10/23 doxycycline hyclate 100 mg tablet 100 mg PO BID #28 ta bs 09/10/23 ibuprofen 600 mg tablet 600 mg PO Q8H PRN pain #14 t abs 09/10/23 ondansetron 4 mg disintegrating 4 mg PO Q8H PRN nausea and 09/10/23 tablet vomiting #7 tabs acetaminophen 650 mg 650 mg PO Q8H PRN pain #30 t abs 05/26/24 tablet,extended release (Tylenol 8 Hour) cephalexin 500 mg capsule 500 mg PO QID 7 days #28 cap s 05/26/24 doxycycline hyclate 100 mg capsule 100 mg PO DAILY 7 d ays #7 caps 05/26/24 ibuprofen 600 mg tablet 600 mg PO Q6H PRN pain #30 t abs 05/26/24 ondansetron 4 mg disintegrating 4 mg PO Q6H PRN nausea and 05/26/24 tablet vomiting #10 tabs cephalexin 500 mg capsule 500 mg PO QID 7 days #28 cap s 06/30/24 clotrimazole 1 % topical cream 1 appl topical BID 14 d ays #15 06/30/24 (Lotrimin AF (clotrimazole)) grams fluconazole 200 mg tablet 200 mg PO DAILY #5 tabs 06/19 01/12 (Diflucan) prednisone 10 mg tablet 10 mg PO DIRECTED #41 tab s 06/30/24 cephalexin 500 mg capsule 500 mg PO Q6H 7 days #28 cap s 06/05/25 doxycycline hyclate 100 mg tablet 100 mg PO BID 7 days #14 tabs 06/05/25 prednisone 20 mg tablet 20 mg PO DAILY 7 days #7 tab s 06/05/25 Allergies Allergy/AdvReac Type Severity Reaction Status Date / Time No Known Allergies Allergy Mild UNKNOWN Verified 06/05/25 10:11 Review of Systems 2 Constitutional: Constitutional: Reports no additional constitutional complaints, Denies chills, Denies fever(s) and Denies night sweats Eyes: Eyes: Reports no additional eye complaints, Denies blurry vision, Denies change in vision, Denies diplopia, Denies eye discharge, Denies loss of vision and Denies eye pain ENT: Denies dizziness Cardiovascular: Cardiovascular: Reports no additional cardiovascular complaints, Denies chest pain, Denies lightheadedness, Denies Loss of Consciousness and Denies dyspnea Respiratory: Respiratory: Reports no additional respiratory complaints and Denies dyspnea Gastrointestinal: Gastrointestinal: Reports no additional gastrointestinal complaints, Denies abdominal pain, Denies melena, Denies hematochezia, Denies change in bowel habits and Denies change in stool character Genitourinary: Genitourinary: Denies hematuria, Denies urinary frequency, Denies dysuria, Denies urinary incontinence, Denies urinary hesitancy and Denies urinary urgency Musculoskeletal: Musculoskeletal: Reports no additional musculoskeletal complaints, Denies numbness and Denies tingling Comments: left lower leg redness Neurologic: Denies dizziness, Denies loss of vision, Denies numbness and Denies tingling Psychiatric: Psychiatric: Reports no additional psychiatric complaints Endocrine: Endocrine: Reports no additional endocrine complaints Hematologic/Lymphatic: Hematologic/Lymphatic: Reports no additional hematologic/lymphatic complaints Allergic/Immunologic: Allergic/Immunologic: Reports no additional allergic/immunologic complaints PMFSH Past Medical History Attestation statement: The following information was validated with the patient. Source: old records reviewed and nursing notes reviewed Medical History Migraine Social History Social History Alcohol intake: never Smoked in Last 30 Days: No Use of substances other than those prescribed or required for medical reasons: No Advance Directives: No Advance Directives Information Provided: No Do you have a plan to hurt others: No Plan Patient : No Physical Exam ED Vital Signs: Vital Signs - 24 hr 06/05/25 10:11 06/05/25 10:57 Temperature 97.2 F 97.2 F Pulse Rate 99 99 Respiratory Rate 16 16 Blood Pressure 124/77 124/77 Pulse Oximetry 100 Oxygen Delivery Method Room Air Room Air BMI result Body Mass Index 31.5 Const General: cooperative, no acute distress, alert and awake Nutritional Appearance: well nourished Orientation/consciousness: patient oriented x3 HENMT Head: Yes normal to inspection and Yes atraumatic Ears: hearing grossly normal bilaterally and external ears normal General nose exam: Normal external nose present, no nasal discharge noted and no epistaxis Face and sinus: Yes normal facial exam, No abrasion and No laceration Mouth: Normal oral and palatal mucosa present, no drooling and no muffled voice Eyes General: appearance normal, both eyes and all related structures Periorbital: periorbital findings normal Eyelids: Yes eyelids normal Conjunctivae: conjunctivae normal Pupils: Equal, round and reactive pupils present EOM: EOMs intact bilaterally Neck Neck: Yes normal visual inspection, Yes full ROM and Yes no lymphadenopathy Resp Effort & Inspection: normal respiratory effort and able to speak in complete sentences Neuro General: patient oriented x3, moves all extremities and CN's II-XI intact bilaterally Cranial nerves: Yes Equal, round and reactive pupils present Cognition (Neuro): normal cognition Extrem Other: General: Yes full ROM and Yes capillary refill normal Psych Appearance: grossly normal Mental Status: mental status grossly normal Affect: normal affect Attitude: cooperative Thought process: Normal thought process present Thought content: Normal thought content present Insight: Good insight present (Psych) Medical Decision Making Medical Decision Making MDM Narrative: Patient is a 34 year old assigned female at with a history of migraines and recurrent left lower leg redness presenting to the emergency department today with left lower leg redness and pain. Patient's physical exam was as noted in the physical exam portion of this note and most consistent with left lower leg cellulitis. I explained my physical exam findings to the patient. I answered all questions asked by the patient. I stressed the importance of the patient taking her medication as directed (either prescribed or as the over the counter packaging recommends). I stressed the importance of the patient following up with her primary care provider and packaging specialist. I stressed the importance of the patient returning to the emergency department immediately if her symptoms were to worsen or if she were to develop any dizziness, shortness of breath, difficulty breathing, chest pain, blurry vision, loss of vision, nausea, vomiting, abdominal pain, fever, chills, back pain, or any other complaints. Patient verbalized agreement and understanding with this treatment plan and discharge. Differential Diagnosis Differential Diagnoses: The differential diagnosis associated with the presentation includes Left lower leg cellulitis Left lower leg pain Admission/Observation Consideration of admission/observation: Escalation of care including admission/observation considered Patient would have been admitted to the hospital had her clinical presentation warranted hospital admission. Prescription Management I considered prescription management with: Antibiotic (patient prescribed an antibiotic) Discharge Plan Discharge Clinical Impression: Cellulitis Patient Disposition: Home, Self-Care Instructions: Cellulitis (ED) Additional Instructions: Follow up with your primary care provider and your packaging specialist. Return to the emergency department immediately if your symptoms worsen or if you develop any numbness, tingling, dizziness, shortness of breath, difficulty breathing, chest pain, blurry vision, loss of vision, nausea, vomiting, abdominal pain, fever, chills, back pain, or any other complaints. Please see the information below about our Patient Portal. If you are not yet enrolled in the [facility] Patient Portal, you will receive an enrollment email invitation following your visit to any [facility] setting. You may also self-enroll in the Patient Portal by visiting our website: [email or web address] The following information is required to access the Patient Portal: - Your [facility] Medical Record Number - Your personal home email address (must match what is in your electronic medical record, Registration staff can assist with this) - Name - Date of Capabilities of the Patient Portal: - Message some providers - View upcoming appointments - Access your health summary, medical history, and visit history - View current conditions and allergies - View procedure and lab results - View your medications, including guidelines, side effects, and precautions - Complete pre-appointment questionnaires requested by your provider - Ready summary reports of your office visits and procedures To access the Patient Portal Mobile Memo, follow these directions: - Search [facility] in the Memo Store or [employer] Store - Download the Memo - Search for [facility] - Enter your login/password Prescriptions: New prednisone 20 mg tablet 20 mg PO DAILY 7 Days Qty: 7 0RF cephalexin 500 mg capsule 500 mg PO Q6H 7 Days Qty: 28 0RF doxycycline hyclate 100 mg tablet 100 mg PO BID 7 Days Qty: 14 0RF No Action diphenhydramine HCl [Benadryl Allergy] 25 mg tablet 25 mg PO TID PRN (Reason: nausea and vomiting) Qty: 10 0RF Excedrin Migraine 250-250-65 mg tablet 2 tab PO Q6H PRN (Reason: pain) Qty: 10 0RF metoclopramide HCl [Reglan] 10 mg tablet 10 mg PO Q6H PRN (Reason: nausea and vomiting) Qty: 10 0RF prednisone 20 mg tablet 20 mg PO DAILY Qty: 4 0RF prednisone 10 mg tablet 10 mg PO DIRECTED Qty: 41 0RF Rx Instructions: see taper instructions 60mg on day 1-5, 40mg on day 6, 30mg on day 7, 20mg on day 8, 10mg on day 9, 5mg on day 10 cephalexin 500 mg capsule 500 mg PO QID 7 Days Qty: 28 0RF fluconazole [Diflucan] 200 mg tablet 200 mg PO DAILY Qty: 5 0RF clotrimazole [Lotrimin AF (clotrimazole)] 1 % cream 1 appl topical BID 14 Days Qty: 15 0RF cephalexin 500 mg capsule 500 mg PO QID 7 Days Qty: 28 0RF doxycycline hyclate 100 mg tablet 100 mg PO BID 7 Days Qty: 14 0RF doxycycline hyclate 100 mg tablet 100 mg PO BID Qty: 28 0RF cephalexin 500 mg capsule 500 mg PO Q6H 14 Days Qty: 56 0RF ibuprofen 600 mg tablet 600 mg PO Q8H PRN (Reason: pain) Qty: 14 0RF ondansetron 4 mg tablet,disintegrating 4 mg PO Q8H PRN (Reason: nausea and vomiting) Qty: 7 0RF cephalexin 500 mg capsule 500 mg PO QID 7 Days Qty: 28 0RF doxycycline hyclate 100 mg capsule 100 mg PO DAILY 7 Days Qty: 7 0RF ibuprofen 600 mg tablet 600 mg PO Q6H PRN (Reason: pain) Qty: 30 0RF acetaminophen [Tylenol 8 Hour] 650 mg tablet extended release 650 mg PO Q8H PRN (Reason: pain) Qty: 30 0RF ondansetron 4 mg tablet,disintegrating 4 mg PO Q6H PRN (Reason: nausea and vomiting) Qty: 10 0RF Referrals: Group,[facility] [Primary Care Provider, Primary Care] Interventions: ED Discharge Assessment Last Done: 06/05/25 10:57 Discharge Date/Time: 06/05/25 10:58 Print Language: Nicaraguan
[2025-06-05 10:57] VITALS: BP 124/77; PULSE 99; RESP 16; TEMP 36.2
--- OUTSIDE RECORDS SUMMARY | 2025-06-05 11:02 | XMS_ITS | Encounter Summary ---
Author Organization [facility] Address [address] [place] [phone] Phone Care Team Providers Care Pipe Liner Name Role Phone Edith Nance MD Primary Care Prov ider Encounter Details Date Type Department Care Team (Late st Contact Info) Description 12/24/2023 Transcribe Orders [facility] Medicine [address] [place] [address] Julissa Hays PA [address] [place] [phone] Social History Tobacco Use Types Packs/Day Years Used Date Smoking Tobacco: Never Assessed Comments Unknown Sex and Gender Information Value Date Recorded Sex Assigned at Not on file Legal Sex Female 8:13 AM EDT Gender Identity Not on file Sexual Orientation Not on file documented as of this encounter Plan of Treatment Not on file documented as of this encounter Visit Diagnoses Not on filedocumented in this encounter Care Teams Pipe Liner Relationship Specialty Start Date End Date Edith Nance MD [address] [place] [id number] PCP - General Internal Medicine 08/27/23 documented as of this encounter Additional Source Comments The information contained in this document represents components of the legal health record. It is not the complete legal health record.[facility]
--- OUTSIDE RECORDS SUMMARY | 2025-06-05 11:02 | XMS_ITS | Clinical Summary ---
Author Organization [facility] [address] [place] [address] [place] [phone] Phone Care Team Providers Care Rn Clinical Quality Name Role Phone Edith Nance MD Primary Care Prov ider Allergies No known active allergies Medications ibuprofen (ADVIL,MOTRIN) 600 mg tablet Take 1 tablet (600 mg total) by mouth every 8 (eight) hours. 3 Active cephalexin (KEFLEX) 500 mg capsule Take 1 capsule (500 mg total) by mouth every 6 (six) hours. 3 Active doxycycline (ADOXA) 100 mg tablet Take 1 tablet (100 mg total) by mouth 2 (two) times a day. 3 Active ondansetron ODT (ZOFRAN-ODT) 4 mg disintegrating tablet Take 1 tablet (4 mg total) by mouth every 8 (eight) hours. 3 Active terbinafine (LamISIL) 1 % cream Apply topically at bedtime. 30 g 1 4 Active venlafaxine XR (EFFEXOR-XR) 37.5 mg 24 hr capsule Take 1 capsule (37.5 mg total) by mouth 1 (one) time each day. Do not crush or chew. 30 each 5 4 Active ACETAMINOPHEN ORAL TAKE 1 TABLET BY MOUTH EVERY 8 HOURS NEEDED FOR PAIN Active CHLORHEXIDINE GLUCONATE TOP : Apply 1 Pump topically daily. Use everytime you bathe for you and all household contacts - Apply externally Active clotrimazole (LOTRIMIN) 1 % cream APPLY TO AFFECTED AREA TOPICALLY TWICE A DAY FOR 14 DAYS Active Active Problems Problem Noted Date Diagnosed Date Hyperlipidemia 08/28/2023 Headache 05/09/2012 Overweight 05/09/2012 Encounters Date Type Department Care Team Description 04/06/2025 11:15 AM EDT Office Visit Adult Medicine [address] [phone] Edith Nance MD Chest pain, unspecified type (Primary Dx); Elevated blood pressure reading; Epigastric pain; Muscle spasm 03/12/2025 Telephone Adult Medicine [address] [phone] Julissa Hays PA Letter for School/Work 03/12/2025 Telephone Adult Medicine [address] [phone] Edith Nance MD appointment; Dizziness from Last 3 Months Immunizations Name Administration Dates Next Due DTaP (Infanrix) 6wks to less than 7yo 08/11/2019 Hepatitis B Pediatric (Enger ix B; Recombivax HB) to less than 20 yo 02/19/2018 Influenza trivalent, with preservative (Fluzone; Afluria) 6mo and older 09/08/2013 MMR, measles mumps and rubel la Live (Priorix; M-M-R II) 12mo and older 02/19/2018,10/13/2017 PPD Test 04/11/2018, 6,01/06/2015,2013,05/13/2014 Tdap Tetanus diptheria acell ular pertussis (Boostrix; Adacel) 7yo and older 09/08/2014 Varicella live (Varivax) 12m o and older 08/11/2019 Surgical History Surgery Date Site/Laterality Comments TUBAL LIGATION PROCEDURE: HISTORICAL TUBAL LIGATION; COMMENT: [facility] Medical History Medical History Date Comments Overweight(278.02) 05/09/2012 DX:Overweight (278.02) Headache(784.0) DX:Headache(784. 0) Hyperlipidemia 08/28/2023 DX:Hyperlipidemi a Family History Medical History Relation Name Comments No Known Problems Brother No Known Problems Daughter No Known Problems Father Colon cancer Maternal Grandfather 69 Coronary artery disease Maternal Grandfather Other: heart problem Maternal Grandmother 28 y.o. Lupus Mother Stroke Paternal Grandfather Breast cancer Paternal Grandmother rigo bach, diagnosed in late 60s Lupus Sister 1 No Known Problems Sister 2 No Known Problems Sister 3 No Known Problems Son x3 Colon cancer Neg Hx Relation Name Status Comments Brother Alive Daughter Alive Father Alive Maternal Grandfather Maternal Grandmother Mother Alive Paternal Grandfather Paternal Grandmother Sister 1 Alive Sister 2 Alive Sister 3 Alive Son Alive Social History Tobacco Use Types Packs/Day Years Used Date Smoking Tobacco: Never Smokeless Tobacco: Never Tobacco Cessation:Counseling Given: Not Answered Alcohol Use Standard Drinks/Week Comments Yes 0 (1 standard drink = 0.6 oz pur e alcohol) special occasions Comments No Sex and Gender Information Value Date Recorded Sex Assigned at Not on file Legal Sex Female 11:11 PM EST Gender Identity Not on file Sexual Orientation Not on file Occupation Industry Job Start Date Job End Date [employer] Not on file Not on file Not on file Obstetrics History Last Filed Vital Signs Vital Sign Reading Time Taken Comments Blood Pressure 142/86 04/06/2025 11:19 AM EDT no chest pain ,no SOB Pulse 76 04/06/2025 11:18 AM EDT Temperature 36.4 C (97.6 F) 04/06/2025 11:18 AM EDT Respiratory Rate 14 04/06/2025 11:1 8 AM EDT Oxygen Saturation 98% 09/29/2024 8:1 5 AM EST Inhaled Oxygen Concentration - - Weight 93.3 kg (205 lb 9.6 oz) 04/06/2025 11:18 AM EDT Height 170.2 cm (5' 7 ) 04/06/2025 11:1 8 AM EDT Body Mass Index 32.2 04/06/2025 11:18 AM EDT Plan of Treatment Health Maintenance Due Date Last Done Comments Hepatitis B Vaccines (1 of 3 - 19+ 3-dose series) 2008 02/19/2018 Cervical Cancer Screening: Pap Smear 03/27/2020 03/27/2017 Hepatitis C Screening 10/29/2022 Depression Screening 05/28/2025 05/28/2024, 05/28/2024 Social Influencers of Health Screening 05/28/2025 05/28/2024 Cholesterol Screening (Lipid Panel) 05/28/2029 05/28/2024, 05/28/2024 DTaP,Tdap,and Td Vaccines (3 - Td or Tdap) 08/11/2029 08/11/2019, 09/08/2014 Influenza Vaccine Discontinued 09/08/2013 MMR Vaccines Aged Out 02/19/2018, 10/13/2017 No longer eligible based on patient's age to complete this topic Varicella Vaccines Aged Out 08/11/2019 No longer eligible based on patient's age to complete this topic HIV Screening Completed 05/28/2024, 05/28/2024 COVID-19 Vaccine Discontinued HIB Vaccines Aged Out No longer eligi ble based on patient's age to complete this topic HPV Vaccines Aged Out No longer eligi ble based on patient's age to complete this topic Hepatitis A Vaccines Aged Out No long er eligible based on patient's age to complete this topic IPV Vaccines Aged Out No longer eligi ble based on patient's age to complete this topic Meningococcal ACWY Vaccine Aged Out N o longer eligible based on patient's age to complete this topic Meningococcal B Vaccine Aged Out No l onger eligible based on patient's age to complete this topic Pneumococcal Vaccine: Pediatrics (0 to 5 Years) and At-Risk Patients (6 to 49 Years) Aged Out No longer eligible based on patient's age to complete this topic RSV Immunization Patients Under 20 months Aged Out No longer eligible based on patient's age to complete this topic Procedures Procedure Name Priority Date/Time Associated Diagnosis Comments ECG 12-LEAD TRACING ONLY Routine 04/13/2025 9:02 PM EDT Chest pain, unspecified type HM HIV SCREENING Routine 05/28/2024 HM DEPRESSION SCREENING Routine 05/28/2024 LIPID PANEL Routine 05/28/2024 from Last 3 Months or Most Recently Relevant to Health Maintenance Results * ECG 12 lead Tracing Only (04/13/2025 9:02 PM EDT) us Edith Nance MD ECG ORDERABLES Fi nal Result * Depression Screening (05/28/2024) Depression Screening abstracted Result [facility] Historical Provider HEALTH MAINTENANCE Final Result * HIV Screening (05/28/2024) Pathologist [facility] HIV Screening abstracted Result [facility] Historical Provider HEALTH MAINTENANCE Final Result * (ABNORMAL) Lipid panel (05/28/2024) LDL/HDL Ratio 5(A) 0 - 4 Triglycerides 147 0 - 150 mg/dL Cholesterol 179 0 - 200 mg/dL HDL 40 >=40 mg/dL LDL Cholesterol 110(A) 0 - 100 mg/dL Blood Venous blood specimen / Unknown Result [facility] Historical Provider LAB BLOOD ORDERABLES Sammi l Result from Last 3 Months or Most Recently Relevant to Health Maintenance Insurance [employer] Care Teams Rn Clinical Quality Relationship Specialty Start Date End Date Edith Nance MD [address] [place] [id number] PCP - General Internal Medicine 06/19/22
== END 2025-06-05 10:58 | disposition home or self-care (01) ==
LOC: HO.ED 10:33
PROVIDERS: Emergency Provider Emergency Medicine
DX: L03.116 Cellulitis of left lower limb (principal); M79.662 Pain in left lower leg
CPT/HCPCS: 99283; 99284

== ENCOUNTER 2025-07-16 08:19 | Emergency (ER) | payer OTHER, SELFPAY ==
[2025-07-16 08:26] VITALS: BP 142/73; PULSE 93; RESP 18; TEMP 36.8; O2SAT 98; BMI 31.4
[2025-07-16 08:41] VITALS: BP 127/79; PULSE 105; RESP 16; O2SAT 98
[2025-07-16 09:01] LABS: Hematocrit 38.4 % (37.0-47.0); Hemoglobin 13.0 g/dl (12.0-16.0); Mean Corpuscular HGB Conc 33.9 g/dl (31.0-35.0); Mean Corpuscular Hemoglobin 28.5 pg (27.0-33.0); Mean Corpuscular Volume 84.2 fL (80.0-98.0); NRBC Abs Auto 0.000 X10*3/uL (0.0-0.012); NRBC Pct Auto 0.0 /100WBC (0.0-0.2); Platelet Count 196 X10*3/uL (160-400); Red Blood Count 4.56 X10*6/uL (4.20-5.50); White Blood Count 13.0 X10*3/uL (4.8-10.8)
--- NOTE | 2025-07-16 09:01 | ED_ITS ---
HPI - General Adult General Chief complaint: Skin/Abscess/Foreign Body Stated complaint: Redness/pain L leg Time Seen by Provider: 07/16/25 08:52 Source: patient Mode of arrival: ambulatory Limitations: no limitations History of Present Illness ED Provider: Layla Rainey PA-C HPI narrative: Patient is a 34 year old assigned female at with a history of migraines and recurrent left lower leg redness presenting to the emergency department today with left lower leg redness and pain. Patient states that this has happened a few times before and she has been given antibiotics and other things in the past that have helped. Patient states that this episode began this morning. 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 Patient denies any other complaints at this time. Onset (ago): hour(s) Location: left and lower extremity Radiation: non-radiation Relieving factors: none Exacerbating factors: none Associated symptoms: rash Treatments prior to arrival: none Related Data Previous Rx's ?Medication ?Instructions ?Recorded kscrrfp-klrrqwkxbudzm-bkxumjjl 250 2 tab PO Q6H PRN pa in #10 tabs 10/20/20 mg-250 mg-65 mg tablet (Excedrin Migraine) diphenhydramine HCl 25 mg tablet 25 mg PO TID PRN naus ea and 10/20/20 (Benadryl Allergy) vomiting #10 tabs metoclopramide HCl 10 mg tablet 10 mg PO Q6H PRN nause a and 10/20/20 (Reglan) vomiting #10 tabs acetaminophen 650 mg 650 mg PO Q8H PRN pain #30 t abs 05/26/24 tablet,extended release (Tylenol 8 Hour) ibuprofen 600 mg tablet 600 mg PO Q6H PRN pain #30 t abs 05/26/24 clotrimazole 1 % topical cream 1 appl topical BID 14 d ays #15 06/30/24 (Lotrimin AF (clotrimazole)) grams cephalexin 500 mg capsule 500 mg PO Q6H 7 days #28 cap s 07/16/25 doxycycline hyclate 100 mg tablet 100 mg PO BID 7 days #14 tabs 07/16/25 prednisone 20 mg tablet 20 mg PO DAILY 7 days #7 tab s 07/16/25 Allergies Allergy/AdvReac Type Severity Reaction Status Date / Time No Known Allergies Allergy Mild UNKNOWN Verified 07/16/25 08:26 Review of Systems 2 Constitutional: Constitutional: Reports as per HPI Eyes: Eyes: Reports as per HPI ENT: Reports as per HPI Cardiovascular: Cardiovascular: Reports as per HPI Respiratory: Respiratory: Reports as per HPI Gastrointestinal: Gastrointestinal: Reports as per HPI Genitourinary: Genitourinary: Reports as per HPI Musculoskeletal: Musculoskeletal: Reports as per HPI Integumentary/Breasts: Skin/Breast: Reports as per HPI Neurologic: Reports as per HPI Psychiatric: Psychiatric: Reports as per HPI Endocrine: Endocrine: Reports as per HPI Hematologic/Lymphatic: Hematologic/Lymphatic: Reports as per HPI Allergic/Immunologic: Allergic/Immunologic: Reports as per HPI [facility] Past Medical History Attestation statement: The following information was validated with the patient. Source: old records reviewed and nursing notes reviewed Medical History Migraine Social History Social History Alcohol intake: never Smoked in Last 30 Days: No Use of substances other than those prescribed or required for medical reasons: Yes Substance Use Type: Marijuana Advance Directives: No Advance Directives Information Provided: No Physical Exam ED Vital Signs: Vital Signs - 24 hr 07/16/25 08:26 07/16/25 08:41 07/16/25 09:55 Temperature 98.2 F 98.0 F Pulse Rate 93 105 H 103 H Respiratory Rate 18 16 14 Blood Pressure 142/73 H 127/79 139/82 Pulse Oximetry 98 98 100 Oxygen Delivery Method Room Air Room Air Room Air 07/16/25 10:11 Temperature 98.0 F Pulse Rate 103 H Respiratory Rate 14 Blood Pressure 139/82 Pulse Oximetry 100 Oxygen Delivery Method Room Air BMI result Body Mass Index 31.4 Const General: cooperative, no acute distress, alert and awake Nutritional Appearance: well nourished Orientation/consciousness: patient oriented x3 HENMT Head: Yes normal to inspection and Yes atraumatic Ears: hearing grossly normal bilaterally and external ears normal General nose exam: Normal external nose present, no nasal discharge noted and no epistaxis Face and sinus: Yes normal facial exam, No abrasion and No laceration Mouth: Normal oral and palatal mucosa present, no drooling and no muffled voice Eyes General: appearance normal, both eyes and all related structures Periorbital: periorbital findings normal Eyelids: Yes eyelids normal Conjunctivae: conjunctivae normal Pupils: Equal, round and reactive pupils present EOM: EOMs intact bilaterally Neck Neck: Yes normal visual inspection and Yes full ROM Resp Effort & Inspection: normal respiratory effort and able to speak in complete sentences Neuro General: patient oriented x3, moves all extremities and CN's II-XI intact bilaterally Cranial nerves: Yes Equal, round and reactive pupils present Cognition (Neuro): normal cognition Extrem Other: General: Yes full ROM and Yes capillary refill normal Psych Appearance: grossly normal Mental Status: mental status grossly normal Affect: normal affect Attitude: cooperative Thought process: Normal thought process present Thought content: Normal thought content present Insight: Good insight present (Psych) Medical Decision Making Medical Decision Making [facility] Narrative: Patient is a 34 year old assigned female at with a history of migraines and recurrent left lower leg redness presenting to the emergency department today with left lower leg redness and pain. Patient's physical exam was as noted in the physical exam portion of this note and most consistent with left lower leg cellulitis. Patient's lab work showed a WBC count of 13 but were otherwise unremarkable. I explained my physical exam findings to the patient. I answered all questions asked by the patient. I explained to the patient that she really should follow up with her county sheriff as this continues to happen and she continues to utilize the ED for treatment. I stressed the importance of the patient taking her medication as directed (either prescribed or as the over the counter packaging recommends). I stressed the importance of the patient following up with her primary care provider and county sheriff. I stressed the importance of the patient returning to the emergency department immediately if her symptoms were to worsen or if she were to develop any dizziness, shortness of breath, difficulty breathing, chest pain, blurry vision, loss of vision, nausea, vomiting, abdominal pain, fever, chills, back pain, or any other complaints. Patient verbalized agreement and understanding with this treatment plan and discharge. Differential Diagnosis Differential Diagnoses: The differential diagnosis associated with the presentation includes Left lower leg cellulitis Lower leg pain Lower leg redness Rash Admission/Observation Consideration of admission/observation: Escalation of care including admission/observation considered Patient would have been admitted to the hospital had her work up had any findings where hospital admission was appropriate and her clinical presentation warranted hospital admission. Lab Data [facility] Lab Attestation statement: I reviewed the patient's lab results. My interpretation of these results are in the [facility] Rationale portion of this note. 07/16/25 08:51 07/16/25 08:51 Labs: Lab Results 07/16/25 Range/Units 08:51 WBC 13.0 H (4.8-10.8) X10*3/uL RBC 4.56 (4.20-5.50) X10*6/uL Hgb 13.0 (12.0-16.0) g/dl Hct 38.4 (37.0-47.0) % MCV 84.2 (80.0-98.0) fL MCH 28.5 (27.0-33.0) pg MCHC 33.9 (31.0-35.0) g/dl RDW 14.0 (11.0-16.0) % Plt Count 196 (160-400) X10*3/uL MPV 12.0 (9.4-12.3) fL Absolute Nucleated RBC 0.000 (0.0-0.012) X10*3/uL Nucleated RBC % (auto) 0.0 (0.0-0.2) /100WBC Sodium 140 (135-145) mmol/L Potassium 3.4 (3.3-5.1) mmol/L Chloride 105 (96-108) mmol/L Carbon Dioxide 24 (22-29) mmol/L Anion Gap 14 (12-20) BUN 9 (9-16) mg/dL Creatinine 0.64 (0.5-1.4) mg/dL Estim Creat Clear Calc 146.8 Estimated GFR > 60 Random Glucose 109 (60-115) mg/dL Calcium 9.2 (8.4-10.2) mg/dL Total Bilirubin 0.3 (0.0-1.0) mg/dL AST 19 (5-31) U/L ALT 26 (0-31) U/L Alkaline Phosphatase 83 (39-117) U/L Total Protein 7.0 (6.5-8.0) g/dL Albumin 4.3 (3.5-5.0) g/dL Prescription Management I considered prescription management with: Antibiotic (patient prescribed antibiotic for left lower leg cellulitis) Discharge Plan Discharge Clinical Impression: Cellulitis Patient Disposition: Home, Self-Care Additional Instructions: Take your medication as prescribed and follow up with your county sheriff. Cantrall govea medicamento seg?n lo prescrito y peggy seguimiento con govea dermat?logo. IF you are prescribed home medications and/or you are taking over the counter medications at home- it is very important you continue to do so as prescribed / directed unless told otherwise. SI le recetan medicamentos y/o est? tomando medicamentos de venta payal, es muy importante que contin?e haci?ndolo seg?n lo recetado/indicado a menos que le indiquen lo contrario. Follow up with your primary care provider. Return to the emergency department immediately if your symptoms worsen or if you develop any dizziness, shortness of breath, difficulty breathing, chest pain, blurry vision, loss of vision, nausea, vomiting, abdominal pain, fever, chills, back pain, or any other complaints. Peggy?seguimiento?con govea m?dico de atenci?n primaria. Acuda inmediatamente al servicio de urgencias si domingo s?ntomas empeoran o si presenta falta de aliento, dificultad para respirar, dolor tor?cico, mareos, aturdimiento, dolor de espalda, dolor abdominal, fiebre, escalofr?os o cualquier otro s?ntoma. Please see the information below about our Patient Portal. If you are not yet enrolled in the [facility] Patient Portal, you will receive an enrollment email invitation following your visit to any [facility] [place] setting. You may also self-enroll in the Patient Portal by visiting our website: [email or web address] The following information is required to access the Patient Portal: - Your [facility] [place] Record Number - Your personal home email address (must match what is in your electronic medical record, Registration staff can assist with this) - Name - Date of Capabilities of the Patient Portal: - Message some providers - View upcoming appointments - Access your health summary, medical history, and visit history - View current conditions and allergies - View procedure and lab results - View your medications, including guidelines, side effects, and precautions - Complete pre-appointment questionnaires requested by your provider - Ready summary reports of your office visits and procedures To access the Patient Portal Mobile Memo, follow these directions: - Search [employer] in the Memo Store or Chartio Store - Download the Memo - Search for [facility] - Enter your login/password Portal del paciente Si usted no esta inscrito en el portal de pacientes de [facility], recibira allegra invitacion de inscripcion despues de govea visita al [facility] o al [facility] [place] via correo electronico. Tambien puede inscribirse voluntariamente en el portal de pacientes visitando nuestra pagina web: [email or web address] La siguiente informacion sera requerida para acceder al portal: - Govea gabriel de historia medica de [facility] - Govea direccion de correo electronico personal - Nombre - Fecha de nacimiento Capacidades: Las siguientes capacidades estan disponibles en el portal de pacientes: - Enviar mensajes a algunos doctores - Verificar proximas citas - Acceso a govea historial de idalia, registro medico e historial de visitas - Jake las condiciones actuales y alergias jake procedimientos y resultados del laboratorio - Jake domingo medicamentos, incluyendo las pautas - Efectos secundarios y precauciones - Completar o llenar formularios / cuestionarios de - Citas solicitadas por govea doctor - Leer los resumenes de reportes medicos de domingo visitas y procedimientos Sandra acceder a la aplicacion movil: - [facility] en la Memo Store o Chartio Store - Descargue la aplicacion - [facility] - Ingrese govea nombre de usuario / Contrasena Prescriptions: New prednisone 20 mg tablet 20 mg PO DAILY 7 Days Qty: 7 0RF cephalexin 500 mg capsule 500 mg PO Q6H 7 Days Qty: 28 0RF doxycycline hyclate 100 mg tablet 100 mg PO BID 7 Days Qty: 14 0RF Discontinued prednisone 20 mg tablet 20 mg PO DAILY Qty: 4 0RF prednisone 10 mg tablet 10 mg PO DIRECTED Qty: 41 0RF Rx Instructions: see taper instructions 60mg on day 1-5, 40mg on day 6, 30mg on day 7, 20mg on day 8, 10mg on day 9, 5mg on day 10 cephalexin 500 mg capsule 500 mg PO QID 7 Days Qty: 28 0RF fluconazole [Diflucan] 200 mg tablet 200 mg PO DAILY Qty: 5 0RF prednisone 20 mg tablet 20 mg PO DAILY 7 Days Qty: 7 0RF cephalexin 500 mg capsule 500 mg PO Q6H 7 Days Qty: 28 0RF doxycycline hyclate 100 mg tablet 100 mg PO BID 7 Days Qty: 14 0RF cephalexin 500 mg capsule 500 mg PO QID 7 Days Qty: 28 0RF doxycycline hyclate 100 mg tablet 100 mg PO BID 7 Days Qty: 14 0RF doxycycline hyclate 100 mg tablet 100 mg PO BID Qty: 28 0RF cephalexin 500 mg capsule 500 mg PO Q6H 14 Days Qty: 56 0RF ibuprofen 600 mg tablet 600 mg PO Q8H PRN (Reason: pain) Qty: 14 0RF ondansetron 4 mg tablet,disintegrating 4 mg PO Q8H PRN (Reason: nausea and vomiting) Qty: 7 0RF cephalexin 500 mg capsule 500 mg PO QID 7 Days Qty: 28 0RF doxycycline hyclate 100 mg capsule 100 mg PO DAILY 7 Days Qty: 7 0RF ondansetron 4 mg tablet,disintegrating 4 mg PO Q6H PRN (Reason: nausea and vomiting) Qty: 10 0RF No Action diphenhydramine HCl [Benadryl Allergy] 25 mg tablet 25 mg PO TID PRN (Reason: nausea and vomiting) Qty: 10 0RF Excedrin Migraine 250-250-65 mg tablet 2 tab PO Q6H PRN (Reason: pain) Qty: 10 0RF metoclopramide HCl [Reglan] 10 mg tablet 10 mg PO Q6H PRN (Reason: nausea and vomiting) Qty: 10 0RF clotrimazole [Lotrimin AF (clotrimazole)] 1 % cream 1 appl topical BID 14 Days Qty: 15 0RF ibuprofen 600 mg tablet 600 mg PO Q6H PRN (Reason: pain) Qty: 30 0RF acetaminophen [Tylenol 8 Hour] 650 mg tablet extended release 650 mg PO Q8H PRN (Reason: pain) Qty: 30 0RF Referrals: Group,[facility] [Primary Care Provider, Primary Care] Interventions: ED Discharge Assessment Last Done: 07/16/25 10:11 Discharge Date/Time: 07/16/25 10:13 Print Language: Burmese
[2025-07-16 09:17] LABS: Alanine Aminotransferase 26 U/L (0-31); Albumin Level 4.3 g/dL (3.5-5.0); Alkaline Phosphatase 83 U/L (39-117); Anion Gap 14 (12-20); Aspartate Amino Transferase 19 U/L (5-31); Blood Urea Nitrogen 9 mg/dL (9-16); Calcium 9.2 mg/dL (8.4-10.2); Carbon Dioxide 24 mmol/L (22-29); Chloride 105 mmol/L (96-108); Creatinine Clr Calc Pharmacy 146.8; Estimated Glomerular Filt Rate > 60; Potassium 3.4 mmol/L (3.3-5.1); Sodium 140 mmol/L (135-145); Total Protein 7.0 g/dL (6.5-8.0)
--- OUTSIDE RECORDS SUMMARY | 2025-07-16 09:19 | XMS_ITS | Clinical Summary ---
Author Organization [facility] Address [address] [place], [place] [phone] Phone Care Team Providers Care Account Adjuster Name Role Phone Edith Delarosa MD Primary Care Prov ider Social History Tobacco Use Types Packs/Day Years Used Date Smoking Tobacco: Never Assessed Comments Unknown Sex and Gender Information Value Date Recorded Sex Assigned at Not on file Legal Sex Female 8:13 AM EDT Gender Identity Not on file Sexual Orientation Not on file Plan of Treatment Not on file Medical Devices Not on file Insurance [email or web address] [facility] [employer] [facility] [employer] [place] [id number] [facility] [place] [id number] Care Teams Account Adjuster Relationship Specialty Start Date End Date Edith Delarosa MD [address] [place] [phone] PCP - General Internal Medicine 08/27/23 Additional Source Comments The information contained in this document represents components of the legal health record. It is not the complete legal health record.[facility]
--- OUTSIDE RECORDS SUMMARY | 2025-07-16 09:19 | XMS_ITS | Encounter Summary ---
Author Organization [facility] Address [address] [place] [phone] Phone Care Team Providers Care Blow Machine Tender Starch Spraying Name Role Phone Edith Delarosa MD Primary Care Prov ider Encounter Details Date Type Department Care Team (Late st Contact Info) Description 12/24/2023 Transcribe Orders [facility] [address] [place] [address] Julissa Hays PA [address] [place] [phone] Social History Tobacco Use Types Packs/Day Years [...] on filedocumented in this encounter Care Teams Blow Machine Tender Starch Spraying Relationship Specialty Start Date End Date Edith Delarosa MD [address] [place] [phone] PCP - General Internal Medicine 08/27/23 documented as of this encounter Additional Source Comments The information contained in this document represents components of the legal health record. It is not the complete legal health record.[facility]
--- OUTSIDE RECORDS SUMMARY | 2025-07-16 09:19 | XMS_ITS ---
Author Name [facility] Organization Unknown Care Team Organization Name Specialty Phone Email Start Date End Da te [facility] Edith Delarosa Primary Care 03/26/2023 07/07/2024 [facility] Melanie Allison Primary Care 09/26/2022 07/07/2024
--- OUTSIDE RECORDS SUMMARY | 2025-07-16 09:19 | XMS_ITS | Clinical Summary ---
Author Organization [facility] [address] [place] [address] [place] [phone] Phone Care Team Providers Care Driving School Instructor Name Role Phone Edith Nance MD Primary [...] Date Hyperlipidemia 08/28/2023 Headache 05/09/2012 Overweight 05/09/2012 Immunizations Name Administration Dates Next Due DTaP [...] TUBAL LIGATION PROCEDURE: HISTORICAL TUBAL LIGATION; COMMENT: [facility] Medical History Medical History Date Comments Overweight(278.02) [...] Industry Job Start Date Job End Date [employer] Not on file Not on file Not [...] 03/27/2017 Hepatitis C Screening 10/29/2022 Depression Screening 11/19/2024 05/28/2024 Social Influencers of Health Screening 05/28/2025 [...] Procedure Name Priority Date/Time Associated Diagnosis Comments DEPRESSION SCREENING Routine 05/28/2024 HIV SCREENING Routine 05/28/2024 LIPID PANEL Routine 05/28/2024 from Last 3 Months or Most Recently Relevant to Health Maintenance Results * Depression Screening (05/28/2024) Pathologist [facility] Depression Screening abstracted [facility] Provider HEALTH MAINTENANCE Final Result * HIV Screening (05/28/2024) [facility] HIV Screening abstracted [facility] Provider HEALTH MAINTENANCE Final Result * (ABNORMAL) Lipid panel (05/28/2024) [facility] LDL/HDL Ratio 5(A) 0 - 4 Triglycerides 147 0 - 150 mg/dL Cholesterol 179 0 - 200 mg/dL HDL 40 >=40 mg/dL LDL Cholesterol 110(A) 0 - 100 mg/dL Blood Venous blood specimen / Unknown Historical Provider LAB BLOOD ORDERABLES Sammi l Result from Last 3 Months or Most Recently Relevant to Health Maintenance Insurance [facility] Care Teams Driving School Instructor Relationship Specialty Start Date End Date Edith Nance MD [address] [place] [phone] PCP - General Internal Medicine 06/19/22
[2025-07-16 09:55] VITALS: BP 139/82; PULSE 103; RESP 14; TEMP 36.7; O2SAT 100
[2025-07-16 10:11] VITALS: BP 139/82; PULSE 103; RESP 14; TEMP 36.7; O2SAT 100
== END 2025-07-16 10:13 | disposition home or self-care (01) ==
PROVIDERS: Emergency Provider Emergency Medicine
DX: L03.116 Cellulitis of left lower limb (principal)
CPT/HCPCS: 36415; 80053; 85027; 99283; 99284

== ENCOUNTER 2025-11-16 07:12 | Emergency (ER) | payer OTHER, SELFPAY ==
[2025-11-16 07:37] VITALS: BP 167/85; PULSE 96; RESP 16; TEMP 37.1; O2SAT 99; BMI 32.2
--- NOTE | 2025-11-16 08:04 | ED_ITS ---
HPI - Skin/Abscess/Foreign Bdy General Chief complaint: Skin/Abscess/Foreign Body Stated complaint: L leg rash w/pain and dizziness Time Seen by Provider: 11/16/25 08:04 Source: patient and old records reviewed Mode of arrival: ambulatory History of Present Illness ED Provider: AURELIA LEWIS narrative: 35-year-old female with past medical history of recurrent cellulitis of the left lower extremity as well as migraines. She notes yesterday she started with a redness on the left lower leg. She states this recurs every 6 months usually responds to earlier antibiotics. She has a little bit of dizziness and not fe eling well she had some chills yesterday. She did vomit yesterday but this morning she is able to tolerate p.o. she does have some mild body aches. She denies any trauma to the leg or travel. She states this is a typical cellulitis flare for her. On arrival she is asking for oral antibiotics. This has worked for her in the past MD complaint: rash Onset (ago): day(s) (1) Location: LLE Severity: moderate Quality: aching Pain Consistency: intermittent Relieving factors: none Exacerbating factors: palpation Associated symptoms: chills, nausea and vomiting Treatments prior to arrival: none Related Data Previous Rx's ?Medication ?Instructions ?Recorded hnrcios-hhdqzjawxrrtz-ydfagdxn 250 2 tab PO Q6H PRN pa in #10 tabs 10/20/20 mg-250 mg-65 mg tablet (Excedrin Migraine) diphenhydramine HCl 25 mg tablet 25 mg PO TID PRN naus ea and 10/20/20 (Benadryl Allergy) vomiting #10 tabs metoclopramide HCl 10 mg tablet 10 mg PO Q6H PRN nause a and 10/20/20 (Reglan) vomiting #10 tabs acetaminophen 650 mg 650 mg PO Q8H PRN pain #30 t abs 05/26/24 tablet,extended release (Tylenol 8 Hour) ibuprofen 600 mg tablet 600 mg PO Q6H PRN pain #30 t abs 05/26/24 clotrimazole 1 % topical cream 1 appl topical BID 14 d ays #15 06/30/24 (Lotrimin AF (clotrimazole)) grams cephalexin 500 mg capsule 500 mg PO Q6H 7 days #28 cap s 07/16/25 doxycycline hyclate 100 mg tablet 100 mg PO BID 7 days #14 tabs 07/16/25 prednisone 20 mg tablet 20 mg PO DAILY 7 days #7 tab s 07/16/25 cephalexin 500 mg capsule 500 mg PO QID 7 days #28 cap s 11/16/25 doxycycline hyclate 100 mg capsule 100 mg PO BID 7 day s #14 caps 11/16/25 ondansetron 4 mg disintegrating 4 mg PO Q8H PRN nausea and 11/16/25 tablet vomiting #20 tabs Allergies Allergy/AdvReac Type Severity Reaction Status Date / Time No Known Allergies Allergy Mild UNKNOWN Verified 11/16/25 07:40 Review of Systems Review of Systems: Yes all other systems are reviewed and are negative FOR[facility]LY [facility], [facility] Past Medical History Attestation statement: The following information was validated with the patient. Source: old records reviewed Medical History Migraine Social History Social History Alcohol intake: never Substance Use Type: Marijuana Do you have a plan to hurt others: No Plan Physical Exam Vital Signs: Vital Signs: Last Vital Signs Temp 98.7 F 11/16/25 07:37 Pulse 96 11/16/25 07:37 Resp 16 11/16/25 07:37 BP 167/85 H 11/16/25 07:37 Pulse Ox 99 11/16/25 07:37 O2 Del Method Room Air 11/16/25 07:37 BMI result Body Mass Index 32.2 Appearance: Alert. Oriented X3. No acute distress. Eyes: Pupils equal, round and reactive to light. ENT: Pharynx normal. Neck: Normal inspection. Neck supple. CVS: Normal heart rate and rhythm. Pulses normal. Respiratory: No respiratory distress. Breath sounds normal. Abdomen: Soft and nontender. Skin: Skin warm and dry. Normal skin color. Extremities: No lower extremity edema. Left lower extremity anterior there is redness and warmth but no swelling and compartments are soft and compressible. She is neurovascularly intact distal. She has no crepitus on exam. Pain is not out of proportion to exam Neuro: Oriented X 3. No motor deficit. No sensory deficit. CN2-12 intact Medical Decision Making Medical Decision Making MDM Narrative: 35-year-old female with history of migraines as well as recurrent cellulitis. She presents with a chronic flare up including symptoms of weakness and intermittent nausea vomiting. At this time she is tolerating p.o.. She is requesting oral antibiotics. I did discuss with her reasons to return. I do not think she has any necrotizing infection or abscess. She has no calf swelling or tenderness to palpation to suggest DVT she is neurovascularly intact. At this time given her history and typical symptoms of a flare up I am going to start on oral Keflex and doxycycline. Differential Diagnosis Differential Diagnoses: The differential diagnosis associated with the presentation includes Cellulitis, vasculitis Admission/Observation Consideration of admission/observation: Escalation of care including admission/observation considered She is tolerating p.o. at this time she requests oral medications to go home with I do not think she needs any further workup this is a chronic intermittent issue and there is no change from baseline for her External Record Review External record reviewed: Outpatient record and Prior outpatient labs Tests considered The following testing was considered but not selected: I considered labs but given her ability to tolerate p.o. is stable vital signs we will trial oral antibiotics Prescription Management I considered prescription management with: Antibiotic and Other Discharge Plan Discharge Clinical Impression: Cellulitis Qualifiers: Site of cellulitis: extremity Site of cellulitis of extremity: lower extremity Laterality: left Qualified Code(s): L03.116 - Cellulitis of left lower limb Patient Disposition: Home, Self-Care Instructions: Cellulitis (ED) Additional Instructions: return for worsening symptoms or concerns keep leg elevated return for worsening pain, continued fevers, no improvement in 48 hours or any other concerns On a cephalosporin?antibiotic, softer bowel movements are to be expected. Call your provider if you move your bowels more than 4 times a day, your bowel movements are almost all liquid, or you get a rash.?? On doxycycline, do not take pills immediately before going to bed and swallow pills with plenty of water. Avoid direct sunlight, iron, antacids, and Pepto Bismol. Call your provider if you develop new ringing in your ears, new problems hearing, dizziness, difficulty swallowing, rash, abdominal discomfort, nausea, or diarrhea.? Prescriptions: New doxycycline hyclate 100 mg capsule 100 mg PO BID 7 Days Qty: 14 0RF cephalexin 500 mg capsule 500 mg PO QID 7 Days Qty: 28 0RF ondansetron 4 mg tablet,disintegrating 4 mg PO Q8H PRN (Reason: nausea and vomiting) Qty: 20 0RF No Action diphenhydramine HCl [Benadryl Allergy] 25 mg tablet 25 mg PO TID PRN (Reason: nausea and vomiting) Qty: 10 0RF Excedrin Migraine 250-250-65 mg tablet 2 tab PO Q6H PRN (Reason: pain) Qty: 10 0RF metoclopramide HCl [Reglan] 10 mg tablet 10 mg PO Q6H PRN (Reason: nausea and vomiting) Qty: 10 0RF clotrimazole [Lotrimin AF (clotrimazole)] 1 % cream 1 appl topical BID 14 Days Qty: 15 0RF ibuprofen 600 mg tablet 600 mg PO Q6H PRN (Reason: pain) Qty: 30 0RF acetaminophen [Tylenol 8 Hour] 650 mg tablet extended release 650 mg PO Q8H PRN (Reason: pain) Qty: 30 0RF prednisone 20 mg tablet 20 mg PO DAILY 7 Days Qty: 7 0RF cephalexin 500 mg capsule 500 mg PO Q6H 7 Days Qty: 28 0RF doxycycline hyclate 100 mg tablet 100 mg PO BID 7 Days Qty: 14 0RF Stand Alone Forms: Work/School Release Print Language: Hungarian
[2025-11-16 08:15] VITALS: BP 167/85; PULSE 96; RESP 16; TEMP 37.1; O2SAT 99
--- OUTSIDE RECORDS SUMMARY | 2025-11-16 08:21 | XMS_ITS | Encounter Summary ---
Author Organization [facility] Address [address] [place] [phone] Phone Care Team Providers Care Bevel Gear Generator Operator Name Role Phone Edith Nance MD Primary Care Prov ider Encounter Details Date Type Department Care Team (Late st Contact Info) Description 12/24/2023 Transcribe Orders [facility] [address] [place] [address] Julissa Hays [place] [address] [place] [phone] Social History Tobacco Use Types Packs/Day Years [...] on filedocumented in this encounter Care Teams Bevel Gear Generator Operator Relationship Specialty Start Date End Date Edith Nance MD [address] [place] [phone] PCP - General Internal Medicine 08/27/23 documented as of this encounter Additional Source Comments The information contained in this document represents components of the legal health record. It is not the complete legal health record.[facility]
--- OUTSIDE RECORDS SUMMARY | 2025-11-16 08:21 | XMS_ITS | Clinical Summary ---
Author Organization [facility] [address] [place] [address] [place] [phone] Phone Care Team Providers Care Agricultural Production Engineer Name Role Phone Edith Nance MD Primary [...] Encounters Date Type Department Care Team Description 08/27/2025 Telephone Adult Medicine [address] [phone] Edith Nance MD from Last 3 Months Immunizations Immunization Administration Dates Next Due DTaP (Infanrix) 6wks [...] TUBAL LIGATION PROCEDURE: HISTORICAL TUBAL LIGATION; COMMENT: [facility] Medical History Medical History Date Comments Overweight(278.02) 05/09/2012 DX:Overweight (278.02) Headache(784.0) DX:Headache(784. 0) Hyperlipidemia 08/28/2023 DX:Hyperlipidemi a Family History Medical History Relation Name Comments No Known Problems Brother No Known Problems Daughter No Known Problems Father Colon cancer Maternal Grandfather 69 Coronary artery disease Maternal Grandfather Other: heart problem Maternal Grandmother 28 y.o. Lupus Mother Stroke Paternal Grandfather Breast cancer Paternal Grandmother unilat eral, diagnosed in late 60s Lupus Sister 1 [...] Industry Job Start Date Job End Date [employer] Not on file Not on file Not on file Last Filed Vital Signs Vital Sign Reading [...] 3 - 19+ 3-dose series) 2008 02/19/2018 HPV Vaccines (1 - 3-dose SCD M series) 2016 Cervical Cancer Screening: Pap Smear 03/27/2020 03/27/2017 Hepatitis C Screening 10/29/2022 Depression Screening 11/19/2024 05/28/2024 Social Influencers of Health Screening 05/28/2025 05/28/2024 Cholesterol Screening (Lipid Panel) 05/28/2029 05/28/2024, 05/28/2024 DTaP,Tdap,and Td Vaccines (3 - Td or Tdap) 08/11/2029 08/11/2019, 09/08/2014 RSV Immunization Adult Patients (1 - 1-dose 75+ series) 2064 Influenza Vaccine Discontinued 09/08/2013 MMR Vaccines Aged [...] Maintenance Results * Depression Screening (05/28/2024) Pathologist [facility] Depression Screening abstracted [facility] Provider HEALTH MAINTENANCE Final Result * HIV Screening (05/28/2024) [facility] HIV Screening abstracted [facility] Provider HEALTH MAINTENANCE Final Result * (ABNORMAL) Lipid panel (05/28/2024) [facility] LDL/HDL Ratio 5(A) 0 - 4 Triglycerides 147 0 - 150 mg/dL Cholesterol 179 0 - 200 mg/dL HDL 40 >=40 mg/dL LDL Cholesterol 110(A) 0 - 100 mg/dL Blood Venous blood specimen / Unknown us Historical Provider LAB BLOOD ORDERABLES Sammi l Result from Last 3 Months or Most Recently Relevant to Health Maintenance Insurance [facility] [employer] Care Teams Agricultural Production Engineer Relationship Specialty Start Date End Date Edith Nance MD [address] [place] [phone] PCP - General Internal Medicine 06/19/22
--- OUTSIDE RECORDS SUMMARY | 2025-11-16 08:21 | XMS_ITS | Clinical Summary ---
Author Organization [facility] Address [address] [place] [address] Phone Care Team Providers Care Nutritional Services Host Name Role Phone Edith Nance MD Primary Care [facility] ider Social History Tobacco Use Types Packs/Day Years Used Date Smoking Tobacco: Never Assessed Comments Unknown Sex and Gender Information Value Date Recorded Sex Assigned at Not on file Legal Sex Female 8:13 AM EDT Gender Identity Not on file Sexual Orientation Not on file Plan of Treatment Not on file Medical Devices Not on file Insurance [employer] [facility] [employer] ACO [facility] [employer] ACO [facility] A[facility] Care Teams Nutritional Services Host Relationship Specialty Start Date End Date Edith Nance MD [address] [place] [phone] PCP - General Internal Medicine 08/27/23 Additional Source Comments The information contained in this document represents components of the legal health record. It is not the complete legal health record.[facility]
== END 2025-11-16 08:19 | disposition home or self-care (01) ==
LOC: HO.ED 08:19
PROVIDERS: Emergency Provider Emergency Medicine
DX: L03.116 Cellulitis of left lower limb (principal); R21 Rash and other nonspecific skin eruption; R42 Dizziness and giddiness; M79.605 Pain in left leg
CPT/HCPCS: 99282